=== PATIENT | female | born 1985 | race Caucasian/White ===

== ENCOUNTER 2023-06-30 07:22 | Outpatient (AMB) | payer BC, SELFPAY ==
[2023-06-30 07:38] VITALS: BP 130/62; BMI 35.3
--- NOTE | 2023-06-30 07:38 | MHC.PC.OV ---
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 Intake Note: New patient establishing care, possible ear infection Big Data Developer Required: No Accompanied by: Self / Same As Patient Allergies No Known Allergies Allergy (Verified 06/30/23 07:47) Medication List - Last Reconciled 06/30/23 by Sara Orr MD omeprazole 20 mg PO DAILY Tobacco use date assessed: 06/30/23 Dental Screening Dental Screen Date: 06/30/23 Did you have a dental visit in the last 12 months?: No Did you have a dental problem in the last 6 months where you did not have access to dental care?: No Was dental information given to patient?: Patient has dentist HPI HPI Comments History of Present Illness Details This is a 38-year-old female with rheumatoid arthritis, left hearing loss and chronic GERD that comes today to establish care. She complains of left ear pain with poor related fusion that has been present for few months. No fever. She sees ENT and has an appointment in September. Was diagnosed with rheumatoid arthritis and 20 years old and was evaluated by Dr. Mercedes who prescribed methotrexate and Enbrel but then did not had insurance for a while and stopped following with Rheumatology. Has been out of treatment for few years. Has been having GERD for about a year that is stable with omeprazole. Denies any chest pain or shortness of breath. No change in bowel or bladder habits. [facility], [facility] Surgical History History of ear surgery Family History Father Throat cancer Lung cancer Mother No problems noted. Social History (Updated 06/30/23 @ 07:54 by Sara Orr MD) Housing: House Alcohol intake: current Alcohol intake frequency: holidays/special occasions only Alcohol type: wine Patient Tobacco Use Status: Never used Tobacco e-Cigarette/Vaping Use: Never Used Second Hand Smoke Exposure: No service: No Current occupational status: employed Current occupational exposures/hazards: No Cognitive needs: No Hearing needs: Yes Vision needs: No Questionnaire PHQ-9 Over the last 2 weeks, how often have you been bothered by any of the following problems? 1. Little interest or pleasure in doing things: not at all 2. Feeling down, depressed, or hopeless: not at all 3. Trouble falling or staying asleep, or sleeping too much: not at all 4. Feeling tired or having little energy: not at all 5. Poor appetite or overeating: not at all 6. Feeling bad about yourself - or that you are a failure or have let yourself or your family down: not at all 7. Trouble concentrating on things, such as reading the newspaper or watching television: not at all 8. Moving or speaking so slowly that other people could have noticed. Or the opposite - being so fidgety or restless that you have been moving around a lot more than usual: not at all 9. Thoughts that you would be better off or of hurting yourself in some way: not at all Total score: 0 Depression Screening Interpretation: Negative Depression Screening Done: Yes 86767 - PHQ-9 Billing: Yes Source: Developed by Drs. Jack Snowden, Vickie Owens, Ramiro Mccarty and colleagues, with an educational alicia from [employer]. Thrive Questionnaire Date Thrive assessed: 06/30/23 I am a: Patient What is your living situation today?: I have a steady place to live Within the past 12 months, did the food you bought not last and you didn't have the money to get more?: Never true Within the past 12 months, did you worry whether your food would run out before you got money to buy more?: Never true Do you have trouble paying for medicines?: No Do you have trouble getting transportation to medical appointments?: No Do you have trouble paying your heating and electricity bill?: No Do you have trouble taking care of your child, family member or friend?: No Do you have trouble with day-to-day activities such as bathing, preparing meals, shopping, managing finances, etc.?: No Are you currently unemployed and looking for a job?: No Are you interested in more education?: No Please select the resources that you would like help with: None Currently or been in a relationship where the following occur: no concerns reported THRIVE Score: 0 AUDIT C Alcohol Use Questionnaire (AUDIT-C) 1. How often do you have a drink containing alcohol?: Monthly or less 2. How many drinks containing alcohol do you have on a typical day when you are drinking?: 1 or 2 3. How often do you have six or more drinks on one occasion?: Never Total Score: 1 Score Reviewed/Action Taken: No POONAM-7 AMB Questionnaire POONAM-7 Date POONAM - 7 assessed: 06/30/23 Feeling nervous, anxious, or on edge: 0 = Not at all Not being able to stop or control worryin = Not at all Worrying too much about different things: 0 = Not at all Trouble relaxin = Not at all Being so restless that it is hard to sit still: 0 = Not at all Becoming easily annoyed or irritable: 0 = Not at all Feeling afraid as if something awful might happen: 0 = Not at all Total POONAM-7 score (0-4 normal; 5-9 mild; 10-14 moderate; 15-21 severe): 0 Source: Developed by Drs. Jack Snowden, Vickie Owens, Ramiro Mccarty and colleagues, with an educational alicia from [employer]. POONAM-7 Assessment Billing POONAM-7 Assessment Tool: POONAM-7 Assessment 00777 Review of Systems Const All systems reviewed & are unremarkable except as noted in HPI and below Card Denies chest pain at rest, Denies chest pain with activity, Denies edema, Denies irregular heart rhythm, Denies claudication, Denies dyspnea, Denies dyspnea on exertion, Denies orthopnea, Denies paroxysmal nocturnal dyspnea and Denies slow heart rate Resp Denies cough, Denies dyspnea and Denies dyspnea on exertion GI Denies abdominal pain, Denies change in bowel habits, Denies excessive flatus, Denies nausea and Denies vomiting Denies urinary incontinence, Denies urinary hesitancy and Denies urinary urgency Physical exam (Primary Care) Vital Signs: Last Vital Signs BP 130/62 06/30/23 07:38 BMI result Body Mass Index 35.3 Tobacco/Smoking Status: Tobacco use Status Tobacco use date assessed 06/30/23 06/30/23 07:45 Patient Tobacco Use Status Never used Tobacco 06/30/23 07:54 e-Cigarette/Vaping Use Never Used 06/30/23 07:54 PHQ-9: PHQ-9 Score PHQ-9: Total score 0 06/30/23 07:56 Depression Screening Interpretation: Negative Thrive Assessment: Date of Thrive Assessment Date Thrive assessed 06/30/23 06/30/23 07:45 Currently or been in a relationship where the following occur: no concerns reported Resp Effort & Inspection: normal respiratory effort Auscultation: clear to auscultation bilaterally Cardio Jugular venous distension: no JVD Rate: regular rate Rhythm: regular rhythm Heart sounds: S1 normal heart sound present and S2 normal heart sound present Extrem General: Yes full ROM Psych Appearance: grossly normal Assessment and Plan Assessment & Plan (1) Rheumatoid arthritis: Code(s): M06.9 - Rheumatoid arthritis, unspecified Plan: Referred to rheumatology. Labs ordered to see if it is active. (2) Chronic GERD: Code(s): K21.9 - Gastro-esophageal reflux disease without esophagitis Plan: Continue omeprazole. (3) Hearing loss in left ear: Code(s): H91.92 - Unspecified hearing loss, left ear Plan: Referred to a hearing test. (4) Left otitis media with effusion: Code(s): H65.92 - Unspecified nonsuppurative otitis media, left ear Plan: Start Augmentin. Orders: Orders Thyroid Stimulating Hormone Today E66.9 - Obesity, unspecified Comprehensive Martin. Panel Fast Today E66.9 - Obesity, unspecified Complete Blood Count Auto Diff Today M06.9 - Rheumatoid arthritis, unspecified Rheumatoid Factor Today M06.9 - Rheumatoid arthritis, unspecified SARA Reflex Titer and Pattern Today M06.9 - Rheumatoid arthritis, unspecified Complement C3 Today M06.9 - Rheumatoid arthritis, unspecified Complement C4 Today M06.9 - Rheumatoid arthritis, unspecified Lipid Panel Today E66.9 - Obesity, unspecified Cyclic Citrullinated Peptide Today M06.9 - Rheumatoid arthritis, unspecified Erythrocyte Sedimentation Rate Today M06.9 - Rheumatoid arthritis, unspecified CRP High Sensitivity Today M06.9 - Rheumatoid arthritis, unspecified Anti DNA DS Antibody Today M06.9 - Rheumatoid arthritis, unspecified Referrals [facility] Referral Z12.4 - Encounter for screening for malignant neoplasm of cervix Speech and Hearing Referral H91.92 - Unspecified hearing loss, left ear Rheumatology Referral M06.9 - Rheumatoid arthritis, unspecified Medications: New amoxicillin-pot clavulanate 875-125 mg 1 tab PO BID 14 tabs 0RF 7 days H65.92 - Unspecified nonsuppurative otitis media, left ear Coding Level of Care Code New Pt Level 4 (71241) Diagnoses Rheumatoid arthritis M06.9 Chronic GERD K21.9 Hearing loss in left ear H91.92 Left otitis media with effusion H65.92 Additional Codes POONAM-7 Assessment Billing - POONAM-7 Assessment Tool: POONAM-7 Assessment 50121 ([id number]) Time Spent (min) 23
== END 2023-06-30 07:59 | disposition home or self-care (01) ==
PROVIDERS: PCP Internal Medicine; Visit Provider Internal Medicine
DX: M06.9 Rheumatoid arthritis, unspecified (principal); K21.9 Gastro-esophageal reflux disease without esophagitis; H91.92 Unspecified hearing loss, left ear; H65.92 Unspecified nonsuppurative otitis media, left ear
CPT/HCPCS: 99204

== ENCOUNTER 2023-07-15 10:24 | Outpatient (AMB) | payer BC, SELFPAY ==
[2023-07-15 10:32] VITALS: BP 118/72; BMI 35.3
--- NOTE | 2023-07-15 10:32 | A.OFFVIS_ITS ---
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 Lewis in [place]. 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 She gets regular periods she is due to get her period any day now. She has no other customer service administrator concerns she has a history of herpes many years ago last outbreak was 2 years ago she would like a refills of Valtrex for p.r.n. use. She is to of the teen years they are not sexually active in the last time was at least 2 years ago she has no concerns about STDs but when testing was offered for the vaginal tests along with Pap smear she accepted. She recently saw primary care for the 1st time and will be going for the blood work. [facility] Surgical History History of ear surgery Family History Father Throat cancer Lung cancer Mother No problems noted. Social History Housing: House Alcohol intake: current Alcohol intake frequency: holidays/special occasions only Alcohol type: wine Patient Tobacco Use Status: Never used Tobacco e-Cigarette/Vaping Use: Never Used Second Hand Smoke Exposure: No service: No Current occupational status: employed Current occupational exposures/hazards: No Cognitive needs: No Hearing needs: Yes Vision needs: No Female Reproductive History Menstrual Age of Menarche: 15 Duration of menses: 3-5 days Date of last menstrual period: 06/15/23 control method: none Total pregnancies: 0 History of abnormal pap smear: No (previous pap,unknown) Physical Exam Vital Signs: Last Vital Signs BP 118/72 07/15/23 10:32 BMI result Body Mass Index 35.3 Assessment & Plan Assessment & Plan (1) Screening for cervical cancer: Code(s): Z12.4 - Encounter for screening for malignant neoplasm of cervix Category: Medical (2) Obesity (BMI 35.0-39.9 without comorbidity): Code(s): E66.9 - Obesity, unspecified Category: Medical (3) Well woman exam with routine gynecological exam: Code(s): Z01.419 - Encounter for gynecological examination (general) (routine) without abnormal findings Category: Medical (4) Hx of herpes genitalis: Comment: No outbreaks for last 2 years -refill of Valtrex sent for p.r.n. use for episodic Rx Code(s): Z86.19 - Personal history of other infectious and parasitic diseases Category: Medical (5) Dry skin: Code(s): L85.3 - Xerosis cutis Category: Medical Plan -----Discussed in this visit the following: healthy balanced diet, regular and consistent exercise, getting recommended health screens, doing the best she can for her particular health concerns, kegel exercises, pap smear screening and followup recommendations, mammography screening and SBE, normal changes in cycles in her life stage--- . Discussed and offered Valtrex Rx for episodic therapy she does not get frequent breaks but she accepted the prescription for p.r.n. use. She has not worried about STDs she has not sexually active with her but excepted testing along with the Pap smear but declined blood work testing She will be going for the blood tests ordered by her primary care provider soon Discussed dry skin care. Orders: Orders Pap Smear Today Z01.419 - Encounter for gynecological examination (general) (routine) without abnormal findings CT NG by PCR Today Z01.419 - Encounter for gynecological examination (general) (routine) without abnormal findings Bacterial Vaginosis Panel Today Z20.2 - Contact with and (suspected) exposure to infections with a predominantly sexual mode of transmission Coding Level of Care Code New Pt Prev Care 18-39yr([id number] Diagnoses Screening for cervical cancer Z12.4 Obesity (BMI 35.0-39.9 without comorbidity) E66.9 Well woman exam with routine gynecological exam Z01.419 Hx of herpes genitalis Z86.19 Dry skin L85.3
== END 2023-07-15 11:25 | disposition home or self-care (01) ==
LOC: HO.HWSM 10:24
PROVIDERS: PCP Internal Medicine; Visit Provider Advanced Practice Midwife
DX: Z01.419 Encounter for gynecological examination (general) (routine) without abnormal findings (principal); E66.9 Obesity, unspecified; Z86.19 Personal history of other infectious and parasitic diseases
CPT/HCPCS: 99385

== ENCOUNTER 2023-07-15 10:24 | Outpatient (REF) | payer BC, SELFPAY ==
[2023-07-16 09:35] LABS: Bacterial Vaginosis PCR NEGATIVE (Negative); Candida Group PCR NOT DETECTED (Not Detect); Candida glab krusei PCR NOT DETECTED (Not Detect); Trichomonas vaginalis PCR NOT DETECTED (Not Detect)
[2023-07-16 09:45] LABS: CT PCR NOT DETECTED (Not Detect.); NG PCR NOT DETECTED (Not Detect.)
[2023-07-23 01:03] LABS: HPV mRNA E6/E7 rflx Not Detected (Not Detected)
== END 2023-07-15 10:25 | disposition home or self-care (01) ==
LOC: HO.LAB 10:24
PROVIDERS: PCP Internal Medicine; Visit Provider Advanced Practice Midwife
DX: Z01.419 Encounter for gynecological examination (general) (routine) without abnormal findings (principal); Z11.51 Encounter for screening for human papillomavirus (HPV); Z20.2 Contact with and (suspected) exposure to infections with a predominantly sexual mode of transmission; E66.9 Obesity, unspecified; L85.3 Xerosis cutis
CPT/HCPCS: 0352U; 0353U; 87624; 88142

== ENCOUNTER 2023-09-16 14:57 | Outpatient (AMB) | payer BC, SELFPAY ==
--- NOTE | 2023-09-16 15:02 | A.OFFVIS_ITS ---
Vital Signs 09/16/23 15:04 Height 5 ft Weight 180 lb 1.883 oz BMI 35.2 BP 132/64 Blood Pressure Location Lt brachial Position Sitting Respiration 16 Pulse 99 Pulse Source Pulse Oximeter Pulse Oximetry (%) 99 Oxygen Delivery Method Room Air Intake Visit Reasons: RA/cm Intake Note: Patient presents for RA. Allergies No Known Allergies Allergy (Verified 09/16/23 15:05) Medication List - Last Reconciled 09/16/23 by Alistair Malin MD omeprazole 20 mg PO DAILY valacyclovir 1,000 mg PO DAILY HPI Comments Details: This is a 38-year-old female presents for evaluation of rheumatoid arthritis. She stated that she was diagnosed with rheumatoid arthritis when she was 19. She used to follow-up with Dr. Mercedes. She stated that she was started on metho trexate, she took it for a few months, it was not effective, Enbrel was added and it was dramatically helpful. Then methotrexate was discontinued. She was on Enbrel about a year and she had to stop it as her insurance no longer covered it. Had not seen a private secretary since age 20. She is complaining of diffuse joint pain especially her hands, her knees and her back. Morning stiffness of her hands lasts about an hour. She gets intermittent swelling of her wrists and fingers. She takes ibuprofen around 1200 mg a day and takes 6 Tylenol a day as well. She denies any significant skin rashes, denies any fevers or weight loss. Denies any history of DVT/PE. She has a cousin with lupus and rheumatoid arthritis. She is unaware of any immediate family member with an autoimmune rheumatic disease. She denies history of psoriasis. Denies history suggestive of uveitis or inflammatory bowel disease. She has hearing loss. 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 She gets herpes labialis about once a year at the most treated with valacyclovir as needed [facility] Medical History Hearing loss in left ear Surgical History History of ear surgery Family History Father Throat cancer Lung cancer Mother No problems noted. 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 Current occupational exposures/hazards: No Cognitive needs: No Hearing needs: Yes Vision needs: No Female Reproductive History Menstrual Age of Menarche: 15 Total pregnancies: 0 Review of Systems Const Denies fever(s) and Denies weight loss Musc Reports back pain, Reports arthralgias, Reports joint swelling, Reports limited range of motion and Reports stiffness Skin/Breast Denies rash Physical Exam Vital Signs: Last Vital Signs Pulse 99 09/16/23 15:04 Resp 16 09/16/23 15:04 BP 132/64 09/16/23 15:04 Pulse Ox 99 09/16/23 15:04 Oxygen Delivery Method Room Air 09/16/23 15:04 BMI result Body Mass Index 35.2 Const General: cooperative, healthy appearing and comfortable Nutritional Appearance: obese Orientation/consciousness: patient oriented x3 Limitations: no limitations HEENT Head: Yes normocephalic and Yes atraumatic Mouth: moist mucous membranes Resp Effort & Inspection: normal respiratory effort and able to speak in complete sentences Auscultation: clear to auscultation bilaterally Cardio Rate: regular rate Rhythm: regular rhythm Skin Other: Dry skin on extensor surface of both elbows Neuro General: patient oriented x3 Extrem Other: Puffiness of MCPs bilaterally Left 3rd and 5th MCP tenderness Left 3rd flexor tendon tenderness Positive MCP squeeze test on the left No wrist swelling or tenderness Few PIP tenderness with no DIP tenderness left hand Positive MCP squeeze test right hand Normal nailfold capillaroscopy No elbow pain with full flexion-extension Firm nodule on both elbows, could be a rheumatoid nodule Normal range of motion of shoulders bilaterally Negative straight leg raise test bilaterally Right trochanteric bursa area tenderness with negative Marleni's test Bilateral knee pain with full flexion Right ankle mild swelling and tenderness Multiple tender MTPs right foot and positive MTP squeeze test Right foot bunion Assessment & Plan Assessment & Plan (1) Rheumatoid arthritis: Comment: dx age 19 , unknown serologies MTX started ineffective Enbrel added, then MTX DC Enbrel stopped due to loss of insurance at 20, no DMARDs since Code(s): M06.9 - Rheumatoid arthritis, unspecified Category: Medical Plan: This is a 38-year-old female who presents for evaluation of rheumatoid arthritis. Patient was diagnosed at age 19 and was on methotrexate followed by Enbrel. She has not been on DMARDs since about age 20. She is complaining of diffuse joint pain. Check labs to evaluate disease activity, check x-rays of involved joints to evaluate for any erosive disease. Follow-up in about 4 weeks Plan I spent 46 minutes reviewing patient's chart, evaluating patient, ordering diagnostic workup, counseling patient and documenting in the chart Orders: Orders MILADYS Reflex Titer and Pattern Today M32.9 - Systemic lupus erythematosus, unspecified Anti Extractable Nuclear Ag Today M32.9 - Systemic lupus erythematosus, unspecified Complement C3 Today M32.9 - Systemic lupus erythematosus, unspecified Complement C4 Today M32.9 - Systemic lupus erythematosus, unspecified DNA Double Stranded-Crithidia Today M32.9 - Systemic lupus erythematosus, unspecified Erythrocyte Sedimentation Rate Today M32.9 - Systemic lupus erythematosus, unspecified Protein Creatinine Ratio, Ur Today M32.9 - Systemic lupus erythematosus, unspecified Complete Blood Count Auto Diff Today M32.9 - Systemic lupus erythematosus, unspecified Protein Electrophoresis, Serum Today M32.9 - Systemic lupus erythematosus, unspecified XR hand wrist LT Today M06.9 - Rheumatoid arthritis, unspecified XR hand wrist RT Today M06.9 - Rheumatoid arthritis, unspecified XR hip LT min 2V Today M06.9 - Rheumatoid arthritis, unspecified XR knee LT 3V Today M06.9 - Rheumatoid arthritis, unspecified XR lumbar spine 4V min Today M06.9 - Rheumatoid arthritis, unspecified XR sacroiliac joint min 3V Today M06.9 - Rheumatoid arthritis, unspecified Anti DNA DS Antibody Today M32.9 - Systemic lupus erythematosus, unspecified C Reactive Protein Today M32.9 - Systemic lupus erythematosus, unspecified Sjogren's Antibodies Today M32.9 - Systemic lupus erythematosus, unspecified UA w Microscopic Today M32.9 - Systemic lupus erythematosus, unspecified Comprehensive Met. Panel Today M32.9 - Systemic lupus erythematosus, unspecified Hepatitis A,B,C Profile Today Z11.59 - Encounter for screening for other viral diseases Immunofixation Pnl, Serum Today M32.9 - Systemic lupus erythematosus, unspecified T Spot TB Today Z11.7 - Encounter for testing for latent tuberculosis infection Rheumatoid Factor Today M32.9 - Systemic lupus erythematosus, unspecified Cyclic Citrullinated Peptide Today M32.9 - Systemic lupus erythematosus, unspecified HLA B27 Today M45.9 - Ankylosing spondylitis of unspecified sites in spine XR ankle LT min 3V Today M06.9 - Rheumatoid arthritis, unspecified XR ankle RT min 3V Today M06.9 - Rheumatoid arthritis, unspecified XR hip RT min 2V Today M06.9 - Rheumatoid arthritis, unspecified XR knee RT 3V Today M06.9 - Rheumatoid arthritis, unspecified XR knee standing BI Today M06.9 - Rheumatoid arthritis, unspecified Angiotensin Converting Enzyme Today D86.9 - Sarcoidosis, unspecified Coding Level of Care Code New Pt Level 4 (38127) Diagnoses Rheumatoid arthritis M06.9
[2023-09-16 15:04] VITALS: BP 132/64; PULSE 99; RESP 16; O2SAT 99; BMI 35.2
== END 2023-09-16 15:33 | disposition home or self-care (01) ==
PROVIDERS: PCP Internal Medicine; Visit Provider Student in an Organized Health Care Education/Training Program
DX: M06.9 Rheumatoid arthritis, unspecified (principal)
CPT/HCPCS: 99204

== ENCOUNTER 2023-10-04 11:40 | Outpatient (REF) | payer BC, SELFPAY ==
--- NOTE | ~2023-10-04 | XR_ITS ---
EXAMINATION: XR KNEE, LEFT CLINICAL INFORMATION: Rheumatoid arthritis. COMPARISON: None available. TECHNIQUE: AP tunnel, lateral and sunrise views of the left knee. FINDINGS: No fracture or joint effusion. Alignment is anatomic. Joint spaces are maintained. No abnormal soft tissue calcification. XR/XR knee LT 4V IMPRESSION: Normal left knee. Electronically signed by: Yasmani Byrne MD 10/25/2023 04:12 PM EDT
--- NOTE | ~2023-10-04 | XR_ITS ---
Study: Lumbar spine INDICATION: Rheumatoid arthritis COMPARISON: None TECHNIQUE: 5 view FINDINGS: 5 lumbar type vertebral bodies are identified and are maintained in height. No spondylolysis or listhesis. Pedicles and SI joints within normal limits. Hip joints are maintained. XR/XR lumbar spine 4V min IMPRESSION: Unremarkable examination. . Electronically signed by: Sakshi Edmond MD 11/02/2023 09:26 AM EDT
--- NOTE | ~2023-10-04 | XR_ITS ---
EXAMINATION: XR SACROILIAC JOINTS CLINICAL INFORMATION: Rheumatoid arthritis. COMPARISON: None available. TECHNIQUE: 3 views of the sacroiliac joints FINDINGS: Bones and soft tissues are normal. No fracture. Alignment is anatomic. Sacroiliac joint spaces are well-maintained without erosions or surrounding sclerosis. XR/XR sacroiliac joint min 3V IMPRESSION: Normal sacroiliac joints. Electronically signed by: Saturnino Reis MD 11/01/2023 12:56 PM EDT
--- NOTE | ~2023-10-04 | XR_ITS ---
EXAMINATION: XR ANKLE, RIGHT CLINICAL INFORMATION: Rheumatoid arthritis COMPARISON: None available. TECHNIQUE: AP, lateral, and mortise views of the right ankle. FINDINGS: No fracture. Alignment is anatomic. No erosions. Joint spaces are maintained. Soft tissues are normal. Small calcaneal spurs. XR/XR ankle RT min 3V IMPRESSION: Small calcaneal spurs. Electronically signed by: Saturnino Reis MD 11/01/2023 12:58 PM EDT RP
--- NOTE | ~2023-10-04 | XR_ITS ---
EXAMINATION: XR HIP, LEFT CLINICAL INFORMATION: Rheumatoid arthritis. COMPARISON: None available. TECHNIQUE: AP and frog-leg lateral views of the left hip. FINDINGS: No fracture. Alignment is anatomic. Hip joint space is maintained. Soft tissues are unremarkable. XR/XR hip LT min 2V IMPRESSION: Normal left hip. Electronically signed by: Yasmani Byrne MD 10/25/2023 05:07 PM EDT
--- NOTE | ~2023-10-04 | XR_ITS ---
EXAMINATION: XR HAND/WRIST, RIGHT XR HAND/WRIST, LEFT CLINICAL INFORMATION: Rheumatoid arthritis. COMPARISON: None available. TECHNIQUE: PA, lateral, and oblique views of the each hand and wrist. FINDINGS: RIGHT HAND/WRIST: There are no marginal erosions. Question mild/subtle joint space narrowing of the radiocarpal compartment. Carpal cyst in the scaphoid, nonspecific. Remaining bones, joints and soft tissues are unremarkable. LEFT HAND/WRIST: No marginal erosions. Bones , joints and soft tissues are normal. XR/XR hand wrist LT IMPRESSION: RIGHT HAND: Question mild/subtle joint space narrowing of the radiocarpal compartment. No marginal erosions. LEFT HAND: No evidence of inflammatory arthropathy. Electronically signed by: Saturnino Reis MD 10/24/2023 08:04 PM EDT
--- NOTE | ~2023-10-04 | XR_ITS ---
EXAMINATION: XR HIP, RIGHT CLINICAL INFORMATION: Rheumatoid arthritis COMPARISON: None available. TECHNIQUE: Two views of the right hip. FINDINGS: No fracture. Alignment is anatomic. Hip joint space is maintained. Soft tissues are unremarkable. XR/XR hip RT min 2V IMPRESSION: Unremarkable right hip Electronically signed by: Sakshi Edmond MD 11/02/2023 09:27 AM EDT
--- NOTE | ~2023-10-04 | XR_ITS ---
EXAMINATION: XR HAND/WRIST, RIGHT XR HAND/WRIST, LEFT CLINICAL INFORMATION: Rheumatoid arthritis. COMPARISON: None available. TECHNIQUE: PA, lateral, and oblique views of the each hand and wrist. FINDINGS: RIGHT HAND/WRIST: There are no marginal erosions. Question mild/subtle joint space narrowing of the radiocarpal compartment. Carpal cyst in the scaphoid, nonspecific. Remaining bones, joints and soft tissues are unremarkable. LEFT HAND/WRIST: No marginal erosions. Bones , joints and soft tissues are normal. XR/XR hand wrist RT IMPRESSION: RIGHT HAND: Question mild/subtle joint space narrowing of the radiocarpal compartment. No marginal erosions. LEFT HAND: No evidence of inflammatory arthropathy. Electronically signed by: Saturnino Reis MD 10/24/2023 08:04 PM EDT
--- NOTE | ~2023-10-04 | XR_ITS ---
EXAMINATION: XR ANKLE, LEFT CLINICAL INFORMATION: Rheumatoid arthritis COMPARISON: None available. TECHNIQUE: AP, lateral, and mortise views of the left ankle. FINDINGS: A small calcaneal spurs. No fracture. Alignment is anatomic. No erosions. Joint spaces are maintained. Soft tissues are normal. XR/XR ankle LT min 3V IMPRESSION: Small calcaneal spurs. Electronically signed by: Saturnino Reis MD 11/01/2023 12:57 PM EDT RP
--- NOTE | ~2023-10-04 | XR_ITS ---
EXAMINATION: XR KNEE, RIGHT XR KNEE AP STANDING CLINICAL INFORMATION: Rheumatoid arthritis. COMPARISON: None TECHNIQUE: AP, lateral and axial views of the right knee. AP bilateral standing view of the knees was obtained. FINDINGS: Bones and soft tissues are normal. No fracture or joint effusion. Alignment is anatomic. Joint spaces are well maintained. No abnormal soft tissue calcification. XR/XR knee RT 4V IMPRESSION: Normal knee. Electronically signed by: Yasmani Byrne MD 10/25/2023 03:38 PM EDT
[2023-10-04 12:28] LABS: MANUAL DIFF FLAG NO
[2023-10-04 12:53] LABS: Basophils Percent Auto 0.4 % (0-2); Eosinophils Absolute Auto 0.1 X10*3/uL (0.0-0.4); Eosinophils Percent Auto 2.1 % (0-4); Hematocrit 26.1 % (37.0-47.0); Imm Gran Abs Auto 0.02 X10*3/uL (0.00-0.03); Imm Gran Pct Auto 0.4 % (0.0-0.4); Lymphocytes Absolute Auto 1.9 X10*3/uL (1.2-4.9); Lymphocytes Percent Auto 33.3 % (20-40); Mean Corpuscular HGB Conc 26.1 g/dl (31.0-35.0); Mean Corpuscular Hemoglobin 16.2 pg (27.0-33.0); Mean Platelet Volume 9.7 fL (9.4-12.3); Monocytes Absolute Auto 0.4 X10*3/uL (0.1-1.2); Monocytes Percent Auto 6.5 % (2-11); Neutrophils Absolute Auto 3.3 x10*3/uL (2.0-8.3); Neutrophils Percent Auto 57.3 % (45-73); Platelet Count 310 X10*3/uL (160-400); Red Blood Count 4.21 X10*6/uL (4.20-5.50); Red Cell Distribution Width 19.4 % (11.0-16.0); White Blood Count 5.7 X10*3/uL (4.8-10.8)
[2023-10-04 12:56] LABS: Appearance Urine Clear; Color Urine Yellow; Glucose Urine UA Negative (Negative); Leukocyte Esterase Urine Negative (Negative); Nitrite Urine Negative (Negative); Urine Blood Negative (Negative); Urine Ketones Negative (Negative); Urine Protein Negative (Neg-Trace)
[2023-10-04 13:00] LABS: Bacteria Urine None Seen (None Seen); Hyaline Casts Urine 0-2 /LPF (0-2); RBC Urine 0-2 /HPF (0-2); Squamous Epithelial Cell Urine 0-2 /HPF (0-2); WBC Urine 0-5 /HPF (0-5)
[2023-10-04 13:10] LABS: Hemoglobin 6.8 g/dl (12.0-16.0)
[2023-10-04 13:34] LABS: Erythrocyte Sedimentation Rate 28 MM/HR (0-20)
[2023-10-04 13:36] LABS: Protein/Creatinine Ratio, Ur 0.04 (<0.2); Total Protein Urine Random 9 mg/dL (<12)
[2023-10-04 13:40] LABS: Rheumatoid Factor 32.4 IU/mL (<15.0)
[2023-10-04 13:57] LABS: Alanine Aminotransferase 27 U/L (0-31); Albumin Level 4.2 g/dL (3.5-5.0); Alkaline Phosphatase 74 U/L (39-117); Anion Gap 11 (12-20); Aspartate Amino Transferase 21 U/L (5-31); Bilirubin Total 0.5 mg/dL (0.0-1.0); Blood Urea Nitrogen 11 mg/dL (9-16); C Reactive Protein 0.84 mg/dL (< or = 0.50); Calcium 8.9 mg/dL (8.4-10.2); Carbon Dioxide 27 mmol/L (22-29); Chloride 105 mmol/L (96-108); Estimated Glomerular Filt Rate > 60; Glucose Random 101 mg/dL (60-115); Potassium 3.8 mmol/L (3.3-5.1); Sodium 139 mmol/L (135-145); Total Protein 7.8 g/dL (6.5-8.0)
[2023-10-04 14:13] LABS: Thyroid Stimulating Hormone 1.83 uIU/mL (0.32-4.0)
[2023-10-05 08:25] LABS: HBS Num1 24.13 mIU/mL (0-7.99); Hepatitis A Antibody IgM 0.18 Index (0-0.79); Hepatitis B Core Antibody Nonreactive (Nonreactive); Hepatitis B Surface Antigen Negative (Negative); ~Hepatitis A Antibody IgM Nonreactive (Nonreactive); ~Hepatitis B Surface Antibody REACTIVE (Nonreactive); ~Hepatitis C Antibody Reactive (Nonreactive)
[2023-10-05 08:38] LABS: CRP High Sensitivity 7.1 mg/L; Complement C3 142 mg/dL (83-193)
[2023-10-06 14:23] LABS: Anti DNA DS Antibody <1 IU/mL; Antibody to SS-A Antigen <1.0 NEG AI (<1.0 NEG); Antibody to SS-B Antigen <1.0 NEG AI (<1.0 NEG); SM/Ribonucleoprotein Ab <1.0 NEG AI (<1.0 NEG); Smith Protein <1.0 NEG AI (<1.0 NEG)
[2023-10-07 00:09] LABS: IgA 250 mg/dL (47-310); IgG 1415 mg/dL (600-1640); IgM 301 mg/dL (50-300)
[2023-10-07 00:12] LABS: TS Negative Control Passed; TS Panel A 0; TS Panel B 0; TS Positive Control Passed; TSpotTB Negative (Negative)
[2023-10-07 09:17] LABS: Prot Elec - Albumin 3.9 g/dL (3.8-4.8); Prot Elec - Alpha1 0.3 g/dL (0.2-0.3); Prot Elec - Alpha2 0.8 g/dL (0.5-0.9); Prot Elec - Beta 1 0.6 g/dL (0.4-0.6); Prot Elec - Beta 2 0.3 g/dL (0.2-0.5); Prot Elec - Gamma 1.4 g/dL (0.8-1.7); Prot Elec - Total Protein 7.3 g/dL (6.1-8.1)
[2023-10-07 09:39] LABS: Cyclic Citrullinated Peptide >250 UNITS
[2023-10-07 11:04] LABS: Anti Nuclear Antibody Screen NEGATIVE (NEGATIVE)
[2023-10-10 01:33] LABS: HLA B27 Negative (Negative)
[2023-10-10 22:09] LABS: Angiotensin Converting Enzyme 22 U/L (9-67)
[2023-10-15 15:43] LABS: DNAds, Crithidia Antibody Negative (Negative)
== END 2023-10-04 11:41 | disposition home or self-care (01) ==
LOC: HO.XRAY 11:40
PROVIDERS: Absent Provider Internal Medicine; PCP Internal Medicine; Visit Provider Student in an Organized Health Care Education/Training Program
DX: Z11.59 Encounter for screening for other viral diseases (principal); Z11.7 Encounter for testing for latent tuberculosis infection; M06.9 Rheumatoid arthritis, unspecified; E66.9 Obesity, unspecified; M32.9 Systemic lupus erythematosus, unspecified; M45.9 Ankylosing spondylitis of unspecified sites in spine; D86.9 Sarcoidosis, unspecified; Z72.89 Other problems related to lifestyle
CPT/HCPCS: 36415; 72110; 72202; 73110; 73130; 73502; 73564; 73610; 80053; 81001; 82164; 82570; 82784; 84156; 84165; 84443; 85025; 85652; 86038; 86140; 86141; 86160; 86200; 86225; 86235; 86255; 86334; 86431; 86481; 86704; 86706; 86709; 86803; 86812; 87340

== ENCOUNTER 2023-10-04 13:41 | Emergency (ER) | payer BC, SELFPAY ==
[2023-10-04] VITALS (14 sets, daily range): BP systolic 119–142; BP diastolic 59–79; PULSE 73–103; RESP 11–18; TEMP 36.7–37; O2SAT 98–100; BMI 35.4
--- NOTE | ~2023-10-04 | CT_ITS ---
EXAMINATION: CT ABDOMEN AND PELVIS WITH AND WITHOUT CONTRAST: CT GI BLEEDING STUDY CLINICAL INFORMATION: Reason for Exam lower gi bleed. COMPARISON: No pertinent prior studies are available for comparison. TECHNIQUE: Multidetector volumetric imaging was performed from the lung bases to the pubic symphysis before and after the administration of: Intravenous contrast: 80 mL Omnipaque 350 2 sets of post contrast scans were obtained, one during the arterial phase and another after a 2 minute delay to look for extravasation of contrast and bowel lumen. No contrast reaction reported MIP coronal, sagittal and coronal reformatted images were obtained on the technologist workstation. This CT examination was performed using dose optimization techniques as appropriate, variously including the following: *Automated exposure control *Adjustment of mA and/or kV according to patient size (this includes techniques or standardized protocols for targeted exams where dose is matched to indication/reason for exam; i.e. extremities or head) *Use of iterative reconstruction technique Total exam dose-length product 1597 mGy-cm FINDINGS: STOMACH: No abnormal wall thickening or mass. No intraluminal contrast accumulation to suggest hemorrhage. SMALL BOWEL: No abnormal wall thickening or dilation. No intraluminal contrast accumulation to suggest hemorrhage. COLON: No intraluminal contrast accumulation to suggest hemorrhage. No colonic wall thickening or pericolonic inflammatory changes. Diverticulosis without evidence of diverticulitis. Normal appendix. LUNG BASES: No nodules, mass, or focal consolidation. PLEURA: No pleural effusion. LIVER, GALLBLADDER, AND BILIARY TREE: The liver is mildly enlarged at 17.7 cm in greatest dimension. In size, shape, and attenuation. No focal hepatic lesion or biliary ductal dilatation is present. The gallbladder is unremarkable with no evidence of radiopaque gallstones, gallbladder wall thickening, or obvious pericholecystic inflammatory changes. PANCREAS: Normal; no mass or surrounding fluid. SPLEEN: Spleen is enlarged with maximum dimension of 15 cm. No focal lesion. ADRENAL GLANDS: Normal; no mass. KIDNEYS AND URETERS: The kidneys are normal in size, shape, and attenuation. No hydronephrosis, hydroureter, or calculi. ABDOMINAL WALL: No hernia seen. LYMPHOVASCULAR STRUCTURES: No lymphadenopathy. The aorta is normal in caliber. A right femoral venous line is present with its tip at the iliac confluence. BLADDER: No focal mass or wall thickening seen. No bladder calculi. PELVIC VISCERA: Unremarkable. OSSEOUS STRUCTURES: No acute or suspicious osseous abnormality. CT/CT gi bleed abd pel wo/w IVcon IMPRESSION: 1. No evidence of active GI bleeding. 2. Incidental note made of mild hepatosplenomegaly and diverticulosis without diverticulitis.
--- NOTE | ~2023-10-04 | CT_ITS ---
EXAMINATION: CT HEAD WITHOUT CONTRAST CLINICAL INFORMATION: Headaches. COMPARISON: None. TECHNIQUE: Contiguous axial imaging was performed from the skull base to vertex without intravenous administration of contrast. Coronal and sagittal reformatted images are performed at the CT scanner. [This CT examination was performed using dose optimization techniques as appropriate, variously including the following: *Automated exposure control *Adjustment of mA and/or kV according to patient size (this includes techniques or standardized protocols for targeted exams where dose is matched to indication/reason for exam; i.e. extremities or head) *Use of iterative reconstruction technique] DLP: 556 mGy-cm. FINDINGS: There is no evidence of acute intracranial hemorrhage or territorial infarction. No abnormal mass-effect or midline shift is seen. Malagon to white matter differentiation is well preserved. No extra-axial fluid collections are identified. The ventricles are normal in size. There is no abnormal attenuation within the brain parenchyma. There is no osseous abnormality. The mastoid air cells and visualized portions of the paranasal sinuses are well-aerated. CT/CT head/brain wo IV con IMPRESSION: No acute intracranial pathology.
--- NOTE | 2023-10-04 13:46 | ECG_ITS ---
Test Reason : chest pain Blood Pressure : / mmHG Vent. Rate : 094 BPM Atrial Rate : 094 BPM P-R Int : 152 ms QRS Dur : 076 ms QT Int : 356 ms P-R-T Axes : 026 043 024 degrees QTc Int : 445 ms Normal sinus rhythm Normal ECG No previous ECGs available Referred By: Kel Thibodeaux Electronically Signed By:SERGIO CHATMAN MD
--- NOTE | 2023-10-04 14:40 | ED_ITS ---
HPI - Recheck/Abnormal Lab/Rx General Chief Complaint: Recheck/Abnormal Lab/Rx Stated Complaint: hemoglobin low Time Seen by Provider: 10/04/23 14:01 Source: patient Mode of arrival: ambulatory Limitations: no limitations History of Present Illness ED Provider: Isaiah LAO HPI narrative: 38 yo F with pmh of herpes genitalis, former IVDA, congenital deafness, GERD, obesity presenting due to low hemoglobin level (6.8) as reported by her pcp via phone call results this morning. Pt was at her rheumatology appointment this morning when she recieved a phone call from her PCP stating she needed to go to the ED d/t low hbg level. She reports associated headaches for the past 3 months and exertional chest pressure and FELICIANO. Pt denies any changes in stool or urine, denies hematuria, hematochezia, melena, vomiting, trauma, fevers, chills Related Data Home Medications ?Medication ?Instructions ?Recorded ?Confirmed omeprazole 20 mg capsule,delayed 20 mg PO DAILY 06/30/23 07/15/23 release Previous Rx's ?Medication ?Instructions ?Recorded valacyclovir 1 gram tablet 1,000 mg PO DAILY #30 tabs 07/15/23 Allergies Allergy/AdvReac Type Severity Reaction Status Date / Time No Known Allergies Allergy Verified 10/04/23 13:48 Review of Systems Review of Systems: Yes all other systems are reviewed and are negative PMFSH Past Medical History Attestation statement: The following information was validated with the patient. Source: old records reviewed and nursing notes reviewed Medical History Hearing loss in left ear Surgical History History of ear surgery Family History Family History Father Throat cancer Lung cancer Mother No problems noted. 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 Oriented X3.? No acute distress.? Head: Normocephalic, atraumatic, no step-offs or deformities Eyes: Pupils equal, round and reactive to light.? ENT: Pharynx normal.??External ears normal, TMs normal bilaterally and EAC's normal. No pain with manipulation of external ears bilaterally. No mastoid tenderness. Neck: Normal inspection.? Neck supple.? CVS: Normal heart rate and rhythm.? Pulses normal.? Respiratory: No respiratory distress.? Breath sounds normal.? Abdomen: Soft and nontender.? Skin: Skin warm and dry.? Normal skin color.? Normal skin turgor.? Extremities: No lower extremity edema.? No calf ttp. 5/5 strength to bilateral upper and lower extremities Back: No midline tenderness, no C-spine tenderness, full range of motion, no CVA tenderness bilaterally Neuro: Oriented X 3.? No motor deficit.? No sensory deficit. CN 2-12 intact Course Reevaluation(s) Reevaluation #1: CBC with a microcytic anemia likely secondary to acute blood loss from microscopic blood in stool. Chemistry unremarkable. TSH normal. UA without infection. OBS positive. Patient difficult stick. Tried with ultrasound unsuccessful. Dr. Mae also tried unsuccessful. Time: 15:22 Reevaluation #2: 2 units PRBC ordered. Time: 15:22 Reevaluation #3: Central line to be done by Dr. Hargrove she is a very difficult stick. Sign out to [facility] Time: 16:29 Medical Decision Making Medical Decision Making MDM Narrative: 38 yo F presenting due to low hemoglobin level (6.8) as reported by her pcp via phone call results this morning . Intermittent shortness of breath, fatigue, malaise, mild Physical examination aaox3, NAD, pt denies any recent bleeding/known bleeding disorder. Hx and pe concerning for HANNAH vs acute bleed vs rectal bleed. Unlikely bleeding disorder, hemmorage, hemodynamic instability. Pending labs, urine Differential Diagnosis Differential Diagnoses: The differential diagnosis associated with the presentation includes Hx and pe concerning for HANNAH vs acute bleed vs rectal bleed. Unlikely bleeding disorder, hemmorage, hemodynamic instability. Admission/Observation Consideration of admission/observation: Escalation of care including admission/observation considered Lab Data Labs: Lab Results 10/04/23 Range/Units 14:49 Stool Occult Blood POSITIVE (NEGATIVE) Critical Care Time Critical Care Time Critical Care Time: Yes Total Critical Care Time: 45 Attestation: I attest to this time spent taking care of the patient, obtaining history, physical, reviewing labs, imaging, speaking to my attending, specialist or hospitalist. Discharge Plan Discharge Clinical Impression: Acute lower GI bleeding, Microcytic anemia Patient Disposition: Home, Self-Care Instructions: Anemia (ED) Additional Instructions: Take your medications as prescribed. If you were prescribed antibiotics today, it is important that you take your medication to their entirety, do not skip any doses, do not finish them early. Follow-up with your primary care provider this week. Return to the emergency department with new or worsening symptoms. Such as fevers, chills, chest pain, shortness of breath, nausea, vomiting, dizziness, headache, vision changes, lethargy In case of emergency call 911 Prescriptions: No Action omeprazole 20 mg capsule,delayed release(DR/EC) 20 mg PO DAILY valacyclovir 1 gram tablet 1,000 mg PO DAILY Qty: 30 0RF Rx Instructions: Use p.r.n. for 3-5 days for outbreaks. Referrals: [facility] – [place] [facility] [Provider Group] - 1 day Sara Kumar MD [Primary Care Provider] - 2 days Stand Alone Forms: Work/School Release Print Language: Frisian
--- NOTE | 2023-10-04 14:42 | PC.NURSE ---
Pt presents to ED from home, was told to come in due to abnormal labs, low H/H. Pt reports no symptoms, denies any SOB or CP, no dizziness. Alert and oriented, breathing even and unlabored, skin pale.
--- NOTE | 2023-10-04 14:51 | MHC.EDTECH ---
Attempted to draw blood on pt however pt is a difficult draw. Attemped draw in triage x2 unsucessful. Then attempted draw by myself in pt room x2 unsuccessful. Provider Tony ROD notified who is opting to insert US guided IV at this time as pt will require fluids and possibly blood products.
[2023-10-04 14:58] LABS: OBS Int Ctl Valid YES; OBS1 POSITIVE (NEGATIVE)
--- NOTE | 2023-10-04 15:15 | PC.NURSE ---
Two providers attempted US IV for blood and access, unsuccessful. Pt hard stick.
--- NOTE | 2023-10-04 16:24 | PC.NURSE ---
Provider at bedside placing central line. RN and tech at bedside. 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
[2023-10-04 17:03] LABS: MANUAL DIFF FLAG NO
[2023-10-04 17:10] LABS: Basophils Percent Auto 0.3 % (0-2); Eosinophils Percent Auto 0.4 % (0-4); Hematocrit 23.6 % (37.0-47.0); Imm Gran Abs Auto 0.06 X10*3/uL (0.00-0.03); Imm Gran Pct Auto 0.9 % (0.0-0.4); Lymphocytes Absolute Auto 1.2 X10*3/uL (1.2-4.9); Lymphocytes Percent Auto 17.5 % (20-40); Mean Corpuscular HGB Conc 26.3 g/dl (31.0-35.0); Mean Corpuscular Hemoglobin 16.1 pg (27.0-33.0); Mean Platelet Volume 9.9 fL (9.4-12.3); Monocytes Absolute Auto 0.4 X10*3/uL (0.1-1.2); Monocytes Percent Auto 5.3 % (2-11); Neutrophils Absolute Auto 5.3 x10*3/uL (2.0-8.3); Neutrophils Percent Auto 75.6 % (45-73); Platelet Count 302 X10*3/uL (160-400); Red Blood Count 3.86 X10*6/uL (4.20-5.50); Red Cell Distribution Width 18.7 % (11.0-16.0)
[2023-10-04 17:22] LABS: Alanine Aminotransferase 25 U/L (0-31); Albumin Level 3.9 g/dL (3.5-5.0); Alkaline Phosphatase 68 U/L (39-117); Anion Gap 12 (12-20); Aspartate Amino Transferase 21 U/L (5-31); Bilirubin Total 0.5 mg/dL (0.0-1.0); Blood Urea Nitrogen 10 mg/dL (9-16); Calcium 9.5 mg/dL (8.4-10.2); Carbon Dioxide 26 mmol/L (22-29); Chloride 105 mmol/L (96-108); Estimated Glomerular Filt Rate > 60; Glucose Random 103 mg/dL (60-115); Potassium 4.1 mmol/L (3.3-5.1); Sodium 139 mmol/L (135-145); Total Protein 7.4 g/dL (6.5-8.0)
[2023-10-04 17:25] LABS: Mean Corpuscular Volume 61.1 fL (80.0-98.0)
[2023-10-04 17:28] LABS: Hemoglobin 6.2 g/dl (12.0-16.0)
[2023-10-04 17:36] LABS: INTERNATIONAL NORM RATIO 1.2 (0.9-1.1)
[2023-10-04 17:39] LABS: Partial Thromboplastin Time 28.5 SEC (26.0-36.8)
[2023-10-04 17:40] LABS: HCG Quantitative < 2 mIU/mL; Troponin-I High Sensitivity < 2.7 ng/L (<3.5-17.0)
--- NOTE | 2023-10-04 17:51 | PC.NURSE ---
Triple lumen central cath place in right femoral by . Blood sent. Pt denies any new complaints
--- NOTE | 2023-10-04 18:45 | PC.NURSE ---
First bag of RBCs transfusing, this RN remained at bedside for first 15 mins. Pt tolerated transfusion well, no transfusions reactions noted. VSS
[2023-10-04] MEDS: iohexoL 350 MG/ML 100 ML INFUS..BTL 80 ML IV (20:40)
[2023-10-05 00:10] LABS: Hemoglobin 8.5 g/dl (12.0-16.0)
[2023-10-05 01:17] VITALS: BP 107/53; PULSE 70
[2023-10-05 01:18] VITALS: BP 118/83; PULSE 81
[2023-10-05 01:19] VITALS: BP 123/70; PULSE 81
[2023-10-05 02:04] VITALS: BP 123/70; PULSE 81; RESP 12; TEMP 36.9; O2SAT 98
== END 2023-10-05 02:05 | disposition home or self-care (01) ==
PROVIDERS: Nurse Practitioner Family; Physician Assistant; Emergency Provider Emergency Medicine; PCP Internal Medicine
DX: K92.2 Gastrointestinal hemorrhage, unspecified (principal); D50.9 Iron deficiency anemia, unspecified; R07.89 Other chest pain; R79.89 Other specified abnormal findings of blood chemistry; R10.2 Pelvic and perineal pain; R11.2 Nausea with vomiting, unspecified; Z79.899 Other long term (current) drug therapy
CPT/HCPCS: 36415; 36430; 70450; 74178; 80053; 82272; 84484; 84702; 85014; 85018; 85025; 85610; 85730; 86850; 86900; 86901; 86923; 93005; 96360; 96361; 99285; P9016; Q9967

== ENCOUNTER → 2023-10-04 13:46 | Outpatient (BNV) | payer BC, SELFPAY | PROVIDERS: Emergency Provider Emergency Medicine; PCP Internal Medicine; Visit Provider Internal Medicine Cardiovascular Disease | DX: R07.9 Chest pain, unspecified (principal) | CPT/HCPCS: 93010 ==

== ENCOUNTER 2023-10-06 13:08 | Outpatient (AMB) | payer BC, SELFPAY ==
[2023-10-06 13:15] VITALS: BP 122/70; BMI 34.6
--- NOTE | 2023-10-06 13:15 | MHC.PC.OV ---
Vital Signs 10/06/23 13:15 Height 5 ft Weight 177 lb BMI 34.6 BP 122/70 Blood Pressure Location Lt brachial Position Sitting Intake Visit Reasons: [facility]F [facility] Low Hemoglobin Die Inspector Required: No Accompanied by: Self / Same As Patient Allergies No Known Allergies Allergy (Verified 10/06/23 13:40) Medication List - Last Reconciled 10/06/23 by Sara Orr MD ferrous sulfate 325 mg PO Q OTHER DAY omeprazole 20 mg PO DAILY valacyclovir 1,000 mg PO DAILY Tobacco use date assessed: 06/30/23 Dental Screening Dental Screen Date: 06/30/23 HPI HPI Comments History of Present Illness Details This is a 38-year-old female with chronic GERD and hepatitis-C that comes today as ER discharge follow-up due to microcytic anemia requiring blood transfusion. Last hemoglobin was 8.5 and this will be repeated in 2 weeks. She denies any menometrorrhagia. Has an occult blood positive in stool and will be referred to Gastroenterology for colonoscopy. Said that last year had blood in the stools but that resolve on its own. Will also be referred to Hematology-Oncology. Has chronic GERD stable with omeprazole. Has hepatitis-C most likely contracted by past use of IV heroin and will also be referred to Gastroenterology for further evaluation and treatment. Denies any chest pain or shortness on breath. [facility] Medical History (Updated 10/06/23 @ 20:49 by Sara Orr MD) Hearing loss in left ear Surgical History History of ear surgery Family History Father Throat cancer Lung cancer Mother No problems noted. 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 Jack Snowden, Vickie Owens, Ramiro Mccarty and colleagues, with an educational alicia from [employer]. Review of Systems Const All systems reviewed & are unremarkable except as noted in HPI and below Card Denies chest pain at rest, Denies chest pain with activity, Denies edema, Denies irregular heart rhythm, Denies claudication, Denies dyspnea, Denies dyspnea on exertion, Denies orthopnea, Denies paroxysmal nocturnal dyspnea and Denies slow heart rate Resp Denies cough, Denies dyspnea and Denies dyspnea on exertion Physical exam (Primary Care) Vital Signs: Last Vital Signs BP 122/70 10/06/23 13:15 BMI result Body Mass Index 34.6 Tobacco/Smoking Status: Tobacco use Status Tobacco use date assessed 06/30/23 10/06/23 13:21 Patient Tobacco Use Status Never used Tobacco 10/06/23 13:21 e-Cigarette/Vaping Use Never Used 10/06/23 13:21 Thrive Assessment: Date of Thrive Assessment Date Thrive assessed 06/30/23 10/06/23 13:21 Resp Effort & Inspection: normal respiratory effort Auscultation: clear to auscultation bilaterally Cardio Jugular venous distension: no JVD Rate: regular rate Rhythm: regular rhythm Heart sounds: S1 normal heart sound present and S2 normal heart sound present Extrem General: Yes full ROM Assessment and Plan Assessment & Plan (1) Microcytic anemia: Code(s): D50.9 - Iron deficiency anemia, unspecified Plan: Referred to Hematology-Oncology. Continue ferrous sulfate with vitamin-C. Avoid taking omeprazole with the ferrous sulfate. Repeat CBC in 2 weeks. (2) Occult blood positive stool: Code(s): R19.5 - Other fecal abnormalities Plan: Referred to Gastroenterology. (3) Hepatitis C: Comment: history of iv heroin use Code(s): B19.20 - Unspecified viral hepatitis C without hepatic coma Qualifiers: Viral hepatitis chronicity: unspecified Hepatic coma status: without hepatic coma Qualified Code(s): B19.20 - Unspecified viral hepatitis C without hepatic coma Plan: Referred to Gastroenterology. (4) Chronic GERD: Code(s): K21.9 - Gastro-esophageal reflux disease without esophagitis Plan: Continue PPIs. Orders: Orders Complete Blood Count Auto Diff 2 Weeks D64.9 - Anemia, unspecified IRON PROFILE Today D64.9 - Anemia, unspecified Hepatitis C Genotype 2 Weeks B19.20 - Unspecified viral hepatitis C without hepatic coma IRON PROFILE 2 Weeks D64.9 - Anemia, unspecified Transglutaminase Ab IgG 2 Weeks D50.9 - Iron deficiency anemia, unspecified Endomysial IgA rflx Titer 2 Weeks D50.9 - Iron deficiency anemia, unspecified Hepatitis C Viral Load 2 Weeks B19.20 - Unspecified viral hepatitis C without hepatic coma Transglutaminase IgA 2 Weeks D50.9 - Iron deficiency anemia, unspecified Gliadin Ab Panel 2 Weeks D50.9 - Iron deficiency anemia, unspecified Reticulocyte Count 2 Weeks D50.9 - Iron deficiency anemia, unspecified Hemoglobin Electrophoresis 2 Weeks D50.9 - Iron deficiency anemia, unspecified Referrals Open Access Screening Colonoscopy Referral R19.5 - Other fecal abnormalities, Z12.11 - Encounter for screening for malignant neoplasm of colon Gastroenterology Referral B19.20 - Unspecified viral hepatitis C without hepatic coma Hematology & Oncology Referral D50.9 - Iron deficiency anemia, unspecified Medications: New ascorbate calcium (vitamin C) 500 mg PO DAILY 90 tabs 0RF 90 days Changed From ferrous sulfate 325 mg PO Q OTHER DAY 30 tabs 0RF To ferrous sulfate 325 mg PO DAILY 90 tabs 1RF 90 days Coding Level of Care Code Est Pt Level 4 (38195) Complex EM visit Add On G2211 Diagnoses Microcytic anemia D50.9 Occult blood positive stool R19.5 Hepatitis C virus infection without hepatic coma, unspecified chronicity B19.20 Viral hepatitis chronicity: unspecified Hepatic coma status: without hepatic coma Chronic GERD K21.9 Time Spent (min) 23
== END 2023-10-06 13:56 | disposition home or self-care (01) ==
PROVIDERS: PCP Internal Medicine; Visit Provider Internal Medicine
DX: D50.9 Iron deficiency anemia, unspecified (principal); R19.5 Other fecal abnormalities; B19.20 Unspecified viral hepatitis C without hepatic coma; K21.9 Gastro-esophageal reflux disease without esophagitis
CPT/HCPCS: 99214

== ENCOUNTER 2023-10-08 08:14 | Outpatient (AMB) | payer BC, SELFPAY ==
--- NOTE | 2023-10-08 08:16 | A.OFFVIS_ITS ---
Vital Signs 10/08/23 08:18 Height 5 ft Weight 177 lb 14.609 oz BMI 34.7 BP 112/70 Blood Pressure Location Rt brachial Position Sitting Respiration 16 Pulse 79 Pulse Source Pulse Oximeter Pulse Oximetry (%) 98 Oxygen Delivery Method Room Air Intake Visit Reasons: RA/CM Intake Note: Patient presents for RA. Allergies No Known Allergies Allergy (Verified 10/08/23 08:19) Medication List - Last Reconciled 10/08/23 by Alistair Malin MD ascorbate calcium (vitamin C) 500 mg PO DAILY 90 days ferrous sulfate 325 mg PO DAILY 90 days omeprazole 20 mg PO DAILY valacyclovir 1,000 mg PO DAILY HPI Comments Details: This is a 38-year-old female with seropositive RA who returns for follow-up after completion of her diagnostic workup. She needs to feel about the same. Recent CBC showed significantly low hemoglobin, and she received blood transfusion. She is scheduled to see forest products gatherer. She states that she has hepatitis-C and never received treatment. Initial history: This is a 38-year-old female presents for evaluation of rheumatoid arthritis. She stated that she was diagnosed with rheumatoid arthritis when she was 19. She used to follow-up with Dr. Mercedes. She stated that she was started on methotrexate, she took it for a few months, it was not effective, Enbrel was added and it was dramatically helpful. Then methotrexate was discontinued. She was on Enbrel about a year and she had to stop it as her insurance no longer covered it. Had not seen a claims vice president since age 20. She is complaining of diffuse joint pain especially her hands, her knees and her back. Morning stiffness of her hands lasts about an hour. She gets intermittent swelling of her wrists and fingers. She takes ibuprofen around 1200 mg a day and takes 6 Tylenol a day as well. She denies any significant skin rashes, denies any fevers or weight loss. Denies any history of DVT/PE. She has a cousin with lupus and rheumatoid arthritis. She is unaware of any immediate family member with an autoimmune rheumatic disease. She denies history of psoriasis. Denies history suggestive of uveitis or inflammatory bowel disease. She has hearing loss. 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 She gets herpes labialis about once a year at the most treated with valacyclovir as needed [facility] Medical History Hearing loss in left ear Surgical History History of ear surgery Family History Father Throat cancer Lung cancer Mother No problems noted. 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 Current occupational exposures/hazards: No Cognitive needs: No Hearing needs: Yes Vision needs: No Female Reproductive History Menstrual Age of Menarche: 15 Review of Systems Const Denies fever(s) and Denies weight loss Musc Reports back pain, Reports arthralgias, Reports joint swelling, Reports limited range of motion and Reports stiffness Skin/Breast Denies rash Physical Exam Vital Signs: Last Vital Signs Pulse 79 10/08/23 08:18 Resp 16 10/08/23 08:18 BP 112/70 10/08/23 08:18 Pulse Ox 98 10/08/23 08:18 Oxygen Delivery Method Room Air 10/08/23 08:18 BMI result Body Mass Index 34.7 Const General: cooperative, healthy appearing and comfortable Nutritional Appearance: obese Orientation/consciousness: patient oriented x3 Limitations: no limitations HEENT Head: Yes normocephalic and Yes atraumatic Mouth: moist mucous membranes Resp Effort & Inspection: normal respiratory effort and able to speak in complete sentences Auscultation: clear to auscultation bilaterally Cardio Rate: regular rate Rhythm: regular rhythm Skin Other: Dry skin on extensor surface of both elbows Neuro General: patient oriented x3 Extrem Other: Puffiness of MCPs bilaterally Left 3rd and 5th MCP tenderness Left 3rd flexor tendon tenderness Positive MCP squeeze test on the left No wrist swelling or tenderness Few PIP tenderness with no DIP tenderness left hand Positive MCP squeeze test right hand Normal nailfold capillaroscopy No elbow pain with full flexion-extension Firm nodule on both elbows, could be a rheumatoid nodule Normal range of motion of shoulders bilaterally Negative straight leg raise test bilaterally Right trochanteric bursa area tenderness with negative Marleni's test Bilateral knee pain with full flexion Right ankle mild swelling and tenderness Multiple tender MTPs right foot and positive MTP squeeze test Right foot bunion Assessment & Plan Assessment & Plan (1) Rheumatoid arthritis: Comment: dx age 19 (+RF, may be related to hep C, +++CCP) MTX started ineffective Enbrel added, then MTX DC Enbrel stopped due to loss of insurance at 20, no DMARDs since Code(s): M06.9 - Rheumatoid arthritis, unspecified Category: Medical Plan: This is a 38-year-old female with seropositive RA who presents for follow-up. Her labs showed a borderline positive rheumatoid factor which may be related to her hepatitis-C. Her hepatitis-C is untreated and patient is seeing Gastroenterology soon. But she has significantly elevated CCP antibody. We will need to start DMARDs however I will avoid biologics at this point given her hepatitis-C. Advised patient to discuss her positive hepatitis-C with Gastroenterology, Discussed risks and benefits of hydroxychloroquine. Patient agreed to proceed. Start hydroxychloroquine 200 mg Twice daily Labs before next visit in 3 months (2) Long-term use of hydroxychloroquine: Code(s): Z79.899 - Other exterminator helper (current) drug therapy Category: Medical Plan: Discussed risk of retinopathy associated with hydroxychloroquine. Advised patient to make an appointment with lmft (3) Microcytic anemia: Code(s): D50.9 - Iron deficiency anemia, unspecified Category: Medical Plan: Follow-up with GI Plan I spent 26 minutes reviewing patient's chart, evaluating patient, ordering diagnostic workup, counseling patient and documenting in the chart Orders: Orders Complete Blood Count Auto Diff 3 Months M05.9 - Rheumatoid arthritis with rheumatoid factor, unspecified Erythrocyte Sedimentation Rate 3 Months M05.9 - Rheumatoid arthritis with rheumatoid factor, unspecified Comprehensive Met. Panel 3 Months M05.9 - Rheumatoid arthritis with rheumatoid factor, unspecified C Reactive Protein 3 Months M05.9 - Rheumatoid arthritis with rheumatoid factor, unspecified Medications: New hydroxychloroquine 200 mg PO BID 60 tabs 2RF Coding Level of Care Code Est Pt Level 4 (78157) Diagnoses Rheumatoid arthritis M06.9 Long-term use of hydroxychloroquine Z79.899 Microcytic anemia D50.9
[2023-10-08 08:18] VITALS: BP 112/70; PULSE 79; RESP 16; O2SAT 98; BMI 34.7
== END 2023-10-08 08:43 | disposition home or self-care (01) ==
PROVIDERS: PCP Internal Medicine; Visit Provider Student in an Organized Health Care Education/Training Program
DX: M06.9 Rheumatoid arthritis, unspecified (principal); Z79.899 Other long term (current) drug therapy; D50.9 Iron deficiency anemia, unspecified
CPT/HCPCS: 99214

== ENCOUNTER 2023-10-11 11:46 | Outpatient (REF) | payer BC, SELFPAY ==
[2023-10-11 12:35] LABS: MANUAL DIFF FLAG NO
[2023-10-11 12:42] LABS: Basophils Percent Auto 0.2 % (0-2); Eosinophils Absolute Auto 0.2 X10*3/uL (0.0-0.4); Eosinophils Percent Auto 3.3 % (0-4); Hematocrit 35.1 % (37.0-47.0); Hemoglobin 9.8 g/dl (12.0-16.0); Imm Gran Abs Auto 0.01 X10*3/uL (0.00-0.03); Imm Gran Pct Auto 0.2 % (0.0-0.4); Lymphocytes Absolute Auto 1.5 X10*3/uL (1.2-4.9); Lymphocytes Percent Auto 30.3 % (20-40); Mean Corpuscular HGB Conc 27.9 g/dl (31.0-35.0); Mean Corpuscular Hemoglobin 19.3 pg (27.0-33.0); Mean Platelet Volume 9.5 fL (9.4-12.3); Monocytes Absolute Auto 0.3 X10*3/uL (0.1-1.2); Monocytes Percent Auto 6.8 % (2-11); Neutrophils Absolute Auto 2.9 x10*3/uL (2.0-8.3); Neutrophils Percent Auto 59.2 % (45-73); Platelet Count 256 X10*3/uL (160-400); Red Blood Count 5.09 X10*6/uL (4.20-5.50); Red Cell Distribution Width 26.7 % (11.0-16.0); White Blood Count 4.8 X10*3/uL (4.8-10.8)
[2023-10-11 12:55] LABS: Alanine Aminotransferase 46 U/L (0-31); Albumin Level 4.3 g/dL (3.5-5.0); Alkaline Phosphatase 76 U/L (39-117); Anion Gap 14 (12-20); Aspartate Amino Transferase 36 U/L (5-31); Basophils Percent Auto 0.4 % (0-2); Bilirubin Total 0.9 mg/dL (0.0-1.0); Blood Urea Nitrogen 13 mg/dL (9-16); Calcium 10.1 mg/dL (8.4-10.2); Carbon Dioxide 28 mmol/L (22-29); Chloride 101 mmol/L (96-108); Eosinophils Absolute Auto 0.2 X10*3/uL (0.0-0.4); Eosinophils Percent Auto 3.4 % (0-4); Estimated Glomerular Filt Rate > 60; Glucose Random 100 mg/dL (60-115); Hematocrit 35.2 % (37.0-47.0); Hemoglobin 9.9 g/dl (12.0-16.0); Imm Gran Abs Auto 0.03 X10*3/uL (0.00-0.03); Imm Gran Pct Auto 0.6 % (0.0-0.4); Immature Retic Fraction 46.2 % (3.0-15.9); Iron 103 mcg/dL (30-160); Lactate Dehydrogenase 214 U/L (122-220); Lymphocytes Absolute Auto 1.5 X10*3/uL (1.2-4.9); Lymphocytes Percent Auto 30.4 % (20-40); MANUAL DIFF FLAG SCAN; Mean Corpuscular HGB Conc 28.1 g/dl (31.0-35.0); Mean Corpuscular Hemoglobin 19.5 pg (27.0-33.0); Mean Corpuscular Volume 69.3 fL (80.0-98.0); Mean Platelet Volume 9.6 fL (9.4-12.3); Monocytes Absolute Auto 0.3 X10*3/uL (0.1-1.2); Monocytes Percent Auto 6.3 % (2-11); Neutrophils Absolute Auto 2.9 x10*3/uL (2.0-8.3); Neutrophils Percent Auto 58.9 % (45-73); Percent Iron Saturation 26 % (15-50); Platelet Count 245 X10*3/uL (160-400); Potassium 4.3 mmol/L (3.3-5.1); Red Blood Count 5.08 X10*6/uL (4.20-5.50); Red Cell Distribution Width 26.9 % (11.0-16.0); Retic HGB Equivalent 24.5 pg (30.0-35.0); Reticulocyte Percent 3.4 % (0.5-1.8); Reticulocytes Absolute 0.173 X10*6/uL (0.026-0.095); SCAN SMEAR FLAG 1; Sodium 139 mmol/L (135-145); Total Iron Binding Capacity 391 mcg/dL (228-428); Total Protein 8.2 g/dL (6.5-8.0); Unsaturated Iron Binding 288 ug/dL
[2023-10-11 13:31] LABS: SLIDE REVIEW VERIFIED
[2023-10-11 13:53] LABS: Ferritin 15 ng/mL (10-122)
[2023-10-11 14:00] LABS: Vitamin B12 372 pg/mL (200-900)
[2023-10-12 20:53] LABS: Anti DNA DS Antibody <1 IU/mL
[2023-10-13 07:22] LABS: HCV Log PCR 5.48 Log IU/mL (NOT DETECTED); HepC Viral Load 300000 IU/mL (NOT DETECTED)
[2023-10-13 08:04] LABS: Gliadin Deamidated IgA Ab <1.0 U/mL; Gliadin Deamidated IgG Ab <1.0 U/mL; Transglutaminase IgA <1.0 U/mL
[2023-10-13 13:13] LABS: Transglutaminase Ab IgG <1.0 U/mL; Transglutaminase IgA <1.0 U/mL
[2023-10-13 13:28] LABS: Hematocrit 35.3 % (35.0-45.0); Hemoglobin 9.8 g/dL (11.7-15.5); MCH 19.2 pg (27.0-33.0); MCV 69.1 fL (80.0-100.0); RBC 5.11 Million/uL (3.80-5.10); RDW 27.4 % (11.0-15.0)
[2023-10-18 16:49] LABS: Hepatitis C Genotype 1a
[2023-10-21 12:29] LABS: Endomysial IgA Antibody Negative (Negative)
== END 2023-10-11 11:47 | disposition home or self-care (01) ==
LOC: HO.LAB 11:46
PROVIDERS: Absent Provider Internal Medicine; PCP Internal Medicine; Visit Provider Internal Medicine Medical Oncology
DX: D64.9 Anemia, unspecified (principal); D50.9 Iron deficiency anemia, unspecified; B19.20 Unspecified viral hepatitis C without hepatic coma; M06.9 Rheumatoid arthritis, unspecified
CPT/HCPCS: 36415; 80053; 82607; 82728; 82746; 83020; 83540; 83615; 85014; 85018; 85025; 85041; 85045; 86225; 86231; 86258; 86364; 87522; 87902

== ENCOUNTER 2023-10-13 13:14 | Outpatient (AMB) | payer BC, SELFPAY ==
[2023-10-13 13:19] VITALS: BP 110/57; PULSE 81; BMI 34.6
--- NOTE | 2023-10-13 13:19 | A.OFFVIS_ITS ---
Vital Signs 10/13/23 13:19 Height 5 ft Weight 177 lb BMI 34.6 BP 110/57 L Blood Pressure Location Lt brachial Position Sitting Pulse 81 Intake Visit Reasons: *URGENT* LOW HGB, ? LOWER GI BLEED VIA ED. Intake Note: Patient new consult for Low HGB and lower GI bleed via ED. Patient cc: constipation, always have to clear her throat, GERD with burning sensation and chocking on the night time. Circuit Walker Required: No Accompanied by: Self / Same As Patient Allergies No Known Allergies Allergy (Verified 10/13/23 13:18) HPI Comments Details: 38 y.o F with PMH of RA on plaquenil, significant hx of ear infections, who is here for profound HANNAH. Pt was getting routine blood work done in July through her Rheum that showed HB <7 with microcytosis. Was sent to ER for blood transfusions x2. Also seeing heme for the same. Currently taking ferrous sulphate 325 daily. Also plan fro IV iron through heme. No hx of abd pain, melena, hematochezia, menorrhagia. No fam hx of blood cancers or colon cancer. Does not smoke or used to smoke. No etOH. No new meds in the past 6 months. Has nto started plaquenil yet. Celiac panel negative. Low ferritin. Stool test + CT Abd/pel with hepatosplenomegaly. HCV +, genotype pending. HBV Ag and core Ab neg. HIV unk. 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 [facility] Medical History (Updated 10/08/23 @ 13:24 by Rodríguez De La Garza MD) Hearing loss in left ear Surgical History (Updated 10/13/23 @ 13:23 by Gia Sherman) History of ear surgery Family History Father Throat cancer Lung cancer Mother No problems noted. 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 Current occupational exposures/hazards: No Cognitive needs: No Hearing needs: Yes Vision needs: No Female Reproductive History Menstrual Age of Menarche: 15 Review of Systems Const All systems reviewed & are unremarkable except as noted in HPI and below Physical Exam Vital Signs: Last Vital Signs Pulse 81 10/13/23 13:19 BP 110/57 L 10/13/23 13:19 BMI result Body Mass Index 34.6 No apparent distress Nonicteric Abdomen soft, nondistended Alert and oriented x3, normal gait Assessment & Plan Assessment & Plan (1) Microcytic anemia: Code(s): D50.9 - Iron deficiency anemia, unspecified Category: Medical (2) Occult blood positive stool: Code(s): R19.5 - Other fecal abnormalities Category: Medical (3) Hepatitis C: Comment: history of iv heroin use Code(s): B19.20 - Unspecified viral hepatitis C without hepatic coma Category: Medical Qualifiers: Viral hepatitis chronicity: unspecified Hepatic coma status: without hepatic coma Qualified Code(s): B19.20 - Unspecified viral hepatitis C without hepatic coma Plan 1. HANNAH: Will arrange for urgent EGD/colo for further evaluation of HANNAH with + occult stool test. Ddx include malabsorption, occult bleeding from large polyp mass, inadequate dietary intake. PEG instructions reviewd with the pt and shes aware of the need for ride back home. Plan: - EGD/colo to be booked - PEG Rxed - Pt reports constipation at baseline so additional dulcolax x2 days prescribed 2. Chronic HCV Coinfection with HBV ruled out. HIV Ab ordered. Genotype pending Plan: - Await genotype - HIV Ab and fibrosure ordered - US ABd ordered - Tx to be initiated after work up for profiund anemia completed Follow up after scopes Orders: Orders HIV Ab/Ag Today B19.20 - Unspecified viral hepatitis C without hepatic coma Liver Fibrosis Pnl Today B19.20 - Unspecified viral hepatitis C without hepatic coma US abdomen complete Today B19.20 - Unspecified viral hepatitis C without hepatic coma Medications: New peg 3350-electrolytes 236-22.74-6.74 -5.86 gram (Golytely) as per split prep instructions, until fecal effluent is clear 240 mL PO Q10M 4,000 mL 0RF colonoscopy bisacodyl to start 2 days before colonoscopy 10 mg (2 x 5 mg) PO BID 2 days 8 tabs 0RF Coding Level of Care Code New Pt Level 4 (11000) Diagnoses Microcytic anemia D50.9 Occult blood positive stool R19.5 Hepatitis C virus infection without hepatic coma, unspecified chronicity B19.20 Viral hepatitis chronicity: unspecified Hepatic coma status: without hepatic coma
== END 2023-10-13 13:54 | disposition home or self-care (01) ==
PROVIDERS: PCP Internal Medicine; Visit Provider Internal Medicine
DX: D50.9 Iron deficiency anemia, unspecified (principal); R19.5 Other fecal abnormalities; B19.20 Unspecified viral hepatitis C without hepatic coma
CPT/HCPCS: 99204

== ENCOUNTER 2023-10-21 12:49 | Day surgery (SDC) | payer BC, SELFPAY ==
[2023-10-21 13:06] VITALS: BMI 34.6
[2023-10-21] MEDS: Lactated Ringers 1,000 ML 100 ML IVCONT (13:10)
[2023-10-21 13:12] LABS: UPreg QC Valid YES; Urine Pregnancy NEGATIVE (NEGATIVE)
[2023-10-21 13:30] VITALS: BP 122/74; PULSE 100; RESP 18; TEMP 36.8; O2SAT 98
--- NOTE | 2023-10-21 14:04 | MHC.SHP ---
Pre-Procedural Eval Section A - 24 Hr Update-Section A only Date of Service: 10/21/23 The patient is an INPATIENT: No The patient has been examined within 24 hours of the surgical procedure. The History & Physical has been completed within 30 days and I have reviewed it.: Yes Section B - Complete if H&P > 30 days Chief Complaint: Iron deficiency anemia, unspecified Allergies: Allergies Allergy/AdvReac Type Severity Reaction Status Date / Time No Known Allergies Allergy Verified 10/21/23 13:31 Plan Diagnosis/Plan: Unchanged I have reviewed the history and physical and performed a pertinent physical examination on my patient. No changes have occurred unless specified. Time Spent With Patient Time: Total time managing care of this patient today ____ minutes.
--- NOTE | 2023-10-21 14:48 | P.OPN-COLO_ITS ---
Colonoscopy Operative Note Operative Note Date of Service: 10/21/23 Narrative: Procedure: Upper endoscopy and colonoscopy Indication: Iron deficiency anemia Endoscopist: Brittany Olivares MD Anesthesia Provider: Tara Ross CRNA Anesthesia type: MAC Instrument: [id number] and [id number] Colonoscopy Procedure:? The procedure, indications, preparation and potential complications were reviewed with the patient, who indicated understanding and gave written informed consent to proceed. A digital rectal exam was performed which was normal.? A distal attachment cap was affixed to the tip of the scope and the colonoscope was then inserted through the anus and advanced through the colon and advanced to the cecum at 70 cm and terminal ileum.? Appendiceal orifice and ileocecal valve were identified. Mucosa was carefully examined under high definition white light as the instrument was slowly withdrawn in a retrograde panoramic fashion. Retroflexion was performed in ascending colon and rectum. The procedure was not difficult. The quality of the prep was BBPS: 3+3+3 = excellent Withdrawal time 7 minutes Limitations: No limitations Findings: Mucosa: Normal mucosa to cecum and terminal ileum. Protruding lesions: * Medium internal hemorrhoids without stigmata of recent bleeding. EGD Procedure:?? The patient was then turned for the upper endoscopy The endoscope was introduced through the bite block, and advanced to the 2nd part of the duodenum. The mucosa was carefully examined on slow withdrawal of the endoscope. The patient tolerated the procedure well. There were no immediate complications.? EGD Findings:? * Esophagus:? There was a focal patch of heterotopic gastric mucosa in the upper esophagus. Remaining mucosa was normal. The Z-line was at 38 cm. * Stomach:Normal gastric mucosa. Retroflexion was performed in the cardia. Random cold forceps biopsies were taken to rule out H pylori * Duodenum:? Normal duodenal mucosa. Cold forceps biopsies were taken from the duodenal bulb and 2nd portion of the duodenal to rule out celiac sprue. Impression: * Inlet patch * Normal stomach (biopsy) * Normal duodenum (biopsy) * Normal colon and terminal ileum mucosa * Hemorrhoids Recommendations:?? * No overt source of GI bleeding identified on bidirectional endoscopy today. * Follow up path results. * If normal, recommend video capsule endoscopy as outpatient to be done in the next 4-6 weeks * Continue iron infusions as per Hematology.
[2023-10-21 14:55] VITALS: BP 101/50; PULSE 61; RESP 16; TEMP 36.1; O2SAT 97
[2023-10-21 15:10] VITALS: BP 128/77; PULSE 84; RESP 16; TEMP 36.1; O2SAT 100
--- NOTE | 2023-10-21 15:48 | P.CONAN_ITS ---
HPI - Anesthesia Eval Consult details Narrative: endo and colon screen PMFSH Active Problems Active Problems: All Active Problems Long-term use of hydroxychloroquine (Acute) Seropositive rheumatoid arthritis (Acute) Microcytic anemia (Acute) Occult blood positive stool (Acute) Hepatitis C (Acute) Dry skin (Acute) Hx of herpes genitalis (Acute) Well woman exam with routine gynecological exam (Acute) Screening for cervical cancer (Acute) Left otitis media with effusion (Acute) Obesity (BMI 35.0-39.9 without comorbidity) (Acute) Chronic GERD (Acute) Past Medical History Medical History Anemia Hx of rheumatoid arthritis Hearing loss in left ear Family History Family History Father Throat cancer Lung cancer Mother No problems noted. Family history of problems with anesthesia: No Surgical History Surgical History History of ear surgery History of Problems with Anesthesia: No Social History Social History Housing: House Are you a primary acute care occupational therapist to a significant other at home: No Do you presently have visiting nurse or other home services: No Alcohol intake: current Alcohol intake frequency: holidays/special occasions only Alcohol type: wine Patient Tobacco Use Status: Never used Tobacco e-Cigarette/Vaping Use: Never Used Second Hand Smoke Exposure: No service: No Current occupational status: employed 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 Current occupational exposures/hazards: No Cognitive needs: No Hearing needs: Yes Vision needs: No Meds Allergies Allergy/AdvReac Type Severity Reaction Status Date / Time No Known Allergies Allergy Verified 10/21/23 13:31 Home Medications ?Medication ?Instructions ?Recorded ?Confirmed ?Last Taken ?Type omeprazole 20 mg capsule,delayed 20 mg PO DAILY 06/30/23 10/21/23 Unknown History release Exam Height,Weight and Vital Signs: Height 5 ft Weight 80.286 kg Last Vital Signs Temp 97 F 10/21/23 15:10 Pulse 84 10/21/23 15:10 Resp 16 10/21/23 15:10 BP 128/77 10/21/23 15:10 Pulse Ox 100 08/22/24 15:10 O2 Del Method Room Air 10/21/23 15:10 Pertinent Lab Results Pertinent Lab Results: Laboratory Tests 10/21/23 12:45 Urine Test NEGATIVE Airway Mallampati Class: II TM Dist: >3cm Neck ROM: Limited Heart: rrr Lungs: cta Assessment and Plan Assessment Anesthesia Assessment: Anesthesia Plan Discussed Final Anesthetic Review Family History of Problems with Anesthesia: No History of Problems with Anesthesia: No NPO: Yes ASA Class: III Final Preanesthetic Review: No Changes in Pt Med Stat, Meds/Allgs Chart Reviewed, Consent Obtained/Reviewed and Anes Risks/Benef Reviewed Patient Risk: Intermediate Procedure Risk: Low Anesthetic Plan Anesthetic Plan: MAC: Disposition: Standard PACU
== END 2023-10-21 15:47 | disposition home or self-care (01) ==
PROVIDERS: Anesthesiology; PCP Internal Medicine; Visit Provider Internal Medicine
PROC: (CPT 45378; principal; 2023-10-21 14:40)
DX: D50.9 Iron deficiency anemia, unspecified (principal); R19.5 Other fecal abnormalities; K64.8 Other hemorrhoids; K59.00 Constipation, unspecified; K21.9 Gastro-esophageal reflux disease without esophagitis; Q39.8 Other congenital malformations of esophagus; K29.70 Gastritis, unspecified, without bleeding; K29.80 Duodenitis without bleeding; M06.9 Rheumatoid arthritis, unspecified; B19.20 Unspecified viral hepatitis C without hepatic coma; Z79.899 Other long term (current) drug therapy
CPT/HCPCS: 45378; 43239; 81025; 88305; 88313; 88342; J1596; J2704

== ENCOUNTER → 2023-10-21 12:49 | Outpatient (BNV) | payer BC, SELFPAY | PROVIDERS: PCP Internal Medicine; Visit Provider Internal Medicine | DX: Z12.11 Encounter for screening for malignant neoplasm of colon (principal); D50.9 Iron deficiency anemia, unspecified; Q40.2 Other specified congenital malformations of stomach; K64.8 Other hemorrhoids | CPT/HCPCS: 43239; 45378 ==

== ENCOUNTER 2023-10-28 09:30 | Outpatient (REF) | payer BC, SELFPAY ==
--- NOTE | ~2023-10-28 | US_ITS ---
EXAMINATION: US ABDOMEN COMPLETE CLINICAL INFORMATION: Unspecified viral hepatitis C without hepatic coma. COMPARISON: None available. TECHNIQUE: Real-time imaging of the abdominal viscera. Limited visualization due to bowel gas. FINDINGS: PANCREAS: Limited visualization of pancreatic tail and head. Imaged portion of pancreatic body is unremarkable. ABDOMINAL AORTA: Limited visualization of the abdominal aorta. Imaged portion of the mid abdominal aorta is within normal limits in caliber. INFERIOR VENA CAVA: Visualized portions are normal. LIVER: Mildly increased hepatic parenchymal heterogeneity and echogenicity could be associated with hepatocellular disease/hepatic steatosis and substantially limits visualization. Correlation with liver function tests and clinical exam recommended to determine further management. GALLBLADDER: No gallstones. Borderline gallbladder wall thickening of 3 mm. COMMON BILE DUCT: Normal in caliber measuring 0.4 cm in diameter. RIGHT KIDNEY: No hydronephrosis. No renal calculi. Limited visualization. The kidney measures 9.8 cm in maximum dimension. LEFT KIDNEY: No hydronephrosis. No renal calculi. Limited visualization. The kidney measures 9.8 cm in maximum dimension. SPLEEN: Splenomegaly. The spleen measures 14.2 cm in maximum dimension. FREE FLUID: None. US/US abdomen complete IMPRESSION: 1. Mildly increased hepatic parenchymal heterogeneity and echogenicity could be associated with hepatocellular disease/hepatic steatosis and substantially limits visualization. Correlation with liver function tests and clinical exam recommended to determine further management. 2. Splenomegaly. Electronically signed by: Jerri Bains MD 11/08/2023 08:13 AM EDT
== END 2023-10-28 09:31 | disposition home or self-care (01) ==
LOC: HO.US 09:30
PROVIDERS: PCP Internal Medicine; Visit Provider Internal Medicine
DX: B19.20 Unspecified viral hepatitis C without hepatic coma (principal)
CPT/HCPCS: 76700

== ENCOUNTER → 2023-11-22 10:20 | Outpatient (BNV) | payer BC, SELFPAY | PROVIDERS: PCP Internal Medicine; Referring Provider Internal Medicine; Visit Provider Internal Medicine Medical Oncology | DX: D64.9 Anemia, unspecified (principal) | CPT/HCPCS: 99213 ==

== ENCOUNTER → 2024-01-03 11:10 | Outpatient (AMB) | payer BC, SELFPAY ==
--- NOTE | 2024-01-03 11:11 | A.OFFVIS_ITS ---
Intake Visit Reasons: f/u egd/colo Intake Note: Shelly presents as a phone call today for a EGD and COLO follow up. CC: She states that she is not having any concerns since her procedure and she just would like results. Supervisor Prep Required: No Allergies No Known Allergies Allergy (Verified 01/03/24 11:11) HPI Comments Details: 38 y.o F with PMH of RA on plaquenil, significant hx of ear infections, who is here for profound HANNAH. Pt was getting routine blood work done in July through her Rheum that showed HB <7 with microcytosis. Was sent to ER for blood transfusions x2. Also seeing heme for the same. Currently taking ferrous sulphate 325 daily. Also plan fro IV iron through heme. No hx of abd pain, melena, hematochezia, menorrhagia. No fam hx of blood cancers or colon cancer. Does not smoke or used to smoke. No etOH. No new meds in the past 6 months. Has nto started plaquenil yet. Celiac panel negative. Low ferritin. Stool test + CT Abd/pel with hepatosplenomegaly. HCV +, genotype pending. HBV Ag and core Ab neg. HIV unk. 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 10/21/23 EGD/colo: * Inlet patch * Normal stomach (biopsy) * Normal duodenum (biopsy) * Normal colon and terminal ileum mucosa * Hemorrhoids Path: A. Duodenum, biopsy: Chronic inactive duodenitis. B. Stomach, random, biopsy: Antral-type and oxyntic mucosa with mild chronic inactive inflammation; no Helicobacter organisms seen 01/03/24: Televisit for post EGD colonoscopy follow-up. Reviewed normal biopsy results. Plan was for capsule endoscopy, however patient did not show for 12/02 appt as she was not sure if she still needed to get this done. Continues on PO iron. H/H has improved. Ferritin remains <50. In terms of chronic HCV genotype 1a, is tx naiive. Fib 4 0.51 i.e not cirrhotic. Likely 2/2 IVDU in the past - reports sobriety x 7 years. [facility] Medical History (Updated 01/03/24 @ 12:45 by Brittany Olivares MD) Anemia Hx of rheumatoid arthritis Hearing loss in left ear Surgical History (Updated 01/03/24 @ 11:11 by GENE Cullen) Hx of colonoscopy History of esophagogastroduodenoscopy (EGD) History of ear surgery Family History Father Throat cancer Lung cancer Mother No problems noted. 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 Current occupational exposures/hazards: No Cognitive needs: No Hearing needs: Yes Vision needs: No Female Reproductive History Menstrual Age of Menarche: 15 Review of Systems Const All systems reviewed & are unremarkable except as noted in HPI and below Physical Exam Vital Signs: televisit: NAD Able to speak in full sentences No shortness of breath Telehealth Telehealth Telehealth Platform: Pulse 8 Location of provider rendering services: practice address Location of patient: address on file Patient Identification confirmed using: Name, : Yes Telehealth method: video Patient verbally consented to treatment: Yes Patient verbally consented to billing insurance company: Yes Patient informed of any privacy concerns related to visit: Yes Minutes spent on Phone/Video with Pt.: 17 Assessment & Plan Assessment & Plan (1) Iron deficiency anemia: Code(s): D50.9 - Iron deficiency anemia, unspecified Category: Medical Plan: Pt reports feeling better with PO iron and wonders if it was a one time self limiting event. Would like to hold off VCE at this time. Reviewed that unable to exclude occult losses at this time. Recommend holding iron x 4 weeks and repeating blood work. If H/H and iron profile trend down, will review VCE again with the pt. Otherwise, agree will be low yield. (2) Hepatitis C: Code(s): B19.20 - Unspecified viral hepatitis C without hepatic coma Category: Medical Qualifiers: Viral hepatitis chronicity: unspecified Hepatic coma status: without hepatic coma Qualified Code(s): B19.20 - Unspecified viral hepatitis C without hepatic coma Plan: Genotype 1a. Noncirrhotic and treatment naive. Msg sent to see if Epclusa vs Mavyret will be covered by insurance. Plan Follow up 6 weeks Orders: Orders Complete Blood Count no Diff 5 Weeks D50.9 - Iron deficiency anemia, unspecified Ferritin 5 Weeks D50.9 - Iron deficiency anemia, unspecified Coding Level of Care Code Tele Est Pt Level 4 (48074) Diagnoses Iron deficiency anemia D50.9 Hepatitis C virus infection without hepatic coma, unspecified chronicity B19.20 Viral hepatitis chronicity: unspecified Hepatic coma status: without hepatic coma
== END ==
LOC: HO.HGI 11:10
PROVIDERS: PCP Internal Medicine; Visit Provider Internal Medicine
DX: D50.9 Iron deficiency anemia, unspecified (principal); B19.20 Unspecified viral hepatitis C without hepatic coma
CPT/HCPCS: 99214

== ENCOUNTER 2024-03-09 07:29 | Outpatient (AMB) | payer BC, SELFPAY ==
--- NOTE | 2024-03-09 07:39 | MHC.PC.OV ---
Vital Signs 03/09/24 07:40 Height 5 ft Weight 180 lb BMI 35.2 BP 126/70 Blood Pressure Location Lt brachial Position Sitting Intake Visit Reasons: Annual Exam Intake Note: Patient here for an annual physical exam Eligibility Supervisor Required: No Accompanied by: Self / Same As Patient Allergies No Known Allergies Allergy (Verified 03/09/24 07:50) Medication List - Last Reconciled 03/09/24 by Sara Orr MD ascorbate calcium (vitamin C) 500 mg PO DAILY 90 days ferrous sulfate 325 mg PO DAILY 90 days glecaprevir-pibrentasvir 100-40 mg 3 tabs PO DAILY 8 weeks hydroxychloroquine 200 mg PO BID omeprazole 20 mg PO DAILY valacyclovir 1,000 mg PO DAILY Tobacco use date assessed: 03/09/24 Dental Screening Dental Screen Date: 03/09/24 Did you have a dental visit in the last 12 months?: Yes Did you have a dental problem in the last 6 months where you did not have access to dental care?: No Was dental information given to patient?: Patient has dentist HPI HPI Comments History of Present Illness Details The patient is a 38-year-old female presenting for a wellness and preventative care visit. She has a history of rheumatoid arthritis, managed with hydroxychloroquine 200 mg twice daily, and follows with rheumatology. The patient also reports anemia, which previously required a transfusion in September of the last year; current management includes blood work scheduled for monitoring. She is on treatment for hepatitis C, with follow-up appointments noted in gastroenterology. Past interventions include ear surgery due to cholesteatoma, and subsequent ENT follow-ups. Preventative care measures discussed include concerns regarding incomplete vaccination with no prior administration of Tdap, alongside its plan for today due to its 10-year administration schedule. The patient also adheres to a regimen of vitamin C with ferrous sulfate on alternate days. Lifestyle management focuses on reducing soda intake for weight management, given recent holiday weight gain. Declines flu vaccine. - Vaccinations: Administration of Tdap vaccine today. - Screening: Upcoming blood work for glucose, renal function, and lipid profile as part of the physical exam. - Lifestyle: Discussed dietary adjustments, specifically reducing soda intake, using smaller dinner plates to manage portion size, and encouraging increased water intake. [facility] Medical History Anemia Hx of rheumatoid arthritis Hearing loss in left ear Surgical History Hx of colonoscopy History of esophagogastroduodenoscopy (EGD) History of ear surgery Family History Father Throat cancer Lung cancer Mother No problems noted. 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 1. Little interest or pleasure in doing things: not at all 2. Feeling down, depressed, or hopeless: not at all 3. Trouble falling or staying asleep, or sleeping too much: several days 4. Feeling tired or having little energy: not at all 5. Poor appetite or overeating: not at all 6. Feeling bad about yourself - or that you are a failure or have let yourself or your family down: not at all 7. Trouble concentrating on things, such as reading the newspaper or watching television: not at all 8. Moving or speaking so slowly that other people could have noticed. Or the opposite - being so fidgety or restless that you have been moving around a lot more than usual: not at all 9. Thoughts that you would be better off or of hurting yourself in some way: not at all Total score: 1 Depression Screening Interpretation: Negative Depression Screening Done: Yes 35464 - PHQ-9 Billing: Yes Source: Developed by Drs. Jack Snowden, Vickie Owens, Ramiro Mccarty and colleagues, with an educational alicia from [employer]. Thrive Questionnaire Date Thrive assessed: 03/09/24 I am a: Patient What is your living situation today?: I have a steady place to live Within the past 12 months, did the food you bought not last and you didn't have the money to get more?: Never true Within the past 12 months, did you worry whether your food would run out before you got money to buy more?: Never true Do you have trouble paying for medicines?: Yes Do you have trouble getting transportation to medical appointments?: No Do you have trouble paying your heating and electricity bill?: No Do you have trouble taking care of your child, family member or friend?: No Do you have trouble with day-to-day activities such as bathing, preparing meals, shopping, managing finances, etc.?: No Are you currently unemployed and looking for a job?: No Are you interested in more education?: No Please select the resources that you would like help with: None Currently or been in a relationship where the following occur: No concerns reported THRIVE Score: 0 AUDIT C Alcohol Use Questionnaire (AUDIT-C) 1. How often do you have a drink containing alcohol?: Never Total Score: 0 Score Reviewed/Action Taken: No POONAM-7 AMB Questionnaire POONAM-7 Date POONAM - 7 assessed: 03/09/24 Feeling nervous, anxious, or on edge: 0 = Not at all Not being able to stop or control worryin = Not at all Worrying too much about different things: 0 = Not at all Trouble relaxin = Not at all Being so restless that it is hard to sit still: 0 = Not at all Becoming easily annoyed or irritable: 0 = Not at all Feeling afraid as if something awful might happen: 0 = Not at all Total POONAM-7 score (0-4 normal; 5-9 mild; 10-14 moderate; 15-21 severe): 0 Source: Developed by Drs. Jack Snowden, Vickie Owens, Ramiro Mccarty and colleagues, with an educational alicia from [employer]. POONAM-7 Assessment Billing POONAM-7 Assessment Tool: POONAM-7 Assessment 76623 Review of Systems Const Details: - General: Denies depression or anxiety. - Cardiovascular: Denies chest pain. - Respiratory: Denies shortness of breath. - Gastrointestinal: Reports normal bowel movements. - Immunologic/Infectious Disease: Denies receiving the flu vaccine last year. Physical exam (Primary Care) Vital Signs: Last Vital Signs BP 126/70 03/09/24 07:40 BMI result Body Mass Index 35.2 BMI Assessment/Plan discussion: High BMI High, discussed plan: lifestyle, weight reduction, dietary and physical activity Tobacco/Smoking Status: Tobacco use Status Tobacco use date assessed 03/09/24 03/09/24 07:44 Patient Tobacco Use Status Never used Tobacco 03/09/24 07:44 e-Cigarette/Vaping Use Never Used 03/09/24 07:44 PHQ-9: PHQ-9 Score PHQ-9: Total score 1 03/09/24 08:10 Depression Screening Interpretation: Negative Thrive Assessment: Date of Thrive Assessment Date Thrive assessed 03/09/24 03/09/24 07:44 Currently or been in a relationship where the following occur: No concerns reported Const Other: General: Cooperative, healthy appearing, comfortable, no acute distress and well developed Orientation: Patient oriented x3 Limitations: No limitations Head: Normal to inspection Ears: Hearing impaired in the right ear due to previous ear surgery for cholesteatoma Nose: Normal external nose present Face and sinus: Normal facial exam Eyes: Appearance normal, both eyes and all related structures Neck: Normal visual inspection and Yes full ROM Respiratory: Normal respiratory effort and able to speak in complete sentences. Clear to auscultation bilaterally Cardiovascular: Regular rate and rhythm. Normal S1 and S2 GI: Normal to inspection. Soft to palpation and nontender Skin: No rashes or lesions noted Neuro: Patient oriented x3 Extremities: Normal to inspection Office Procedures Flu Questionnaire Does the patient have a severe egg allergy?: No Immunizations Fluarix Triv [id number] (PF) 45 mcg (15 mcg x 3)/0.5 mL IM syringe Performing Provider: Sara Orr MD [place] [facility] [place] [facility] Documented (not given) by: GENE Goldman on 03/09/24 07:44 Reason Not Given: Patient Refused Boostrix Tdap 2.5 Lf unit-8 mcg-5 Lf/0.5 mL intramuscular syringe Performing Provider: Sara Orr MD Performing Location: [facility] Administered by: GENE Goldman on 03/09/24 08:11 Dose Route Admin Location Dispensed Lot Number Expiration Date NDC Bean Picker 0.5 mL IM Right Deltoid 0.5 mL [id number] 03/25/26 [id number] [employer] VIS Given Date VIS Provided VIS Publication Date 03/09/24 Single Vaccine 20 Eligibility Eligibility Date Funding Source Not [facility] Eligible 03/09/24 Private Coding Level of Care Code Est Pt Prev Care 18-39y(02926) Diagnoses Physical exam Z00.00 Seropositive rheumatoid arthritis M05.9 Additional Codes POONAM-7 Assessment Billing - POONAM-7 Assessment Tool: POONAM-7 Assessment 92268 ([id number]) PHQ-9 - 43664 - PHQ-9 Billing: Yes ([id number]) Time Spent (min) 30 Assessment & Plan Assessment & Plan (1) Physical exam: Code(s): Z00.00 - Encounter for general adult medical examination without abnormal findings Category: Medical (2) Seropositive rheumatoid arthritis: Code(s): M05.9 - Rheumatoid arthritis with rheumatoid factor, unspecified Category: Medical Plan - Administer Tdap vaccine as the patient has not received it previously. - Schedule and complete blood work to assess glucose, renal function, and cholesterol levels. - Continue management of rheumatoid arthritis with hydroxychloroquine, with ongoing rheumatological follow-ups. - Recommend continuing the current treatment plan for hepatitis C, with follow-up as scheduled in gastroenterology. - Encourage lifestyle changes for weight management, focusing on reducing soda intake and increasing water consumption. - Monitor anemia status through planned blood work. Patient was informed and verbally consented to the use of an ambient scribe for clinic note documentation during this visit. I discussed the plan to administer the Tdap vaccine today since it has not been previously given. We also went over the importance of completing blood work to monitor her anemia, glucose levels, renal function, and lipid profile. I reviewed her current medications and follow-up arrangements with rheumatology and gastroenterology. Additionally, we discussed lifestyle modifications to support weight management, emphasizing the reduction of soda intake. Future appointments were planned to continue monitoring her conditions. Orders: Orders Influenza [id number] Immunization Today Z23 - Encounter for immunization Comprehensive [place]. Panel Fast Today Z00.00 - Encounter for general adult medical examination without abnormal findings TDaP Immunization Today Z23 - Encounter for immunization Lipid Panel Today Z00.00 - Encounter for general adult medical examination without abnormal findings Patient Instructions: - Receive the Tdap vaccination today. - Attend scheduled blood work appointments for glucose, renal function, and cholesterol assessments. - Continue with current medication regimen for rheumatoid arthritis and hepatitis C. - Follow dietary recommendations to reduce soda intake and use smaller portion sizes. - Contact us if there are any changes in health or concerns arise.
[2024-03-09 07:40] VITALS: BP 126/70; BMI 35.2
== END 2024-03-09 08:09 | disposition home or self-care (01) ==
PROVIDERS: PCP Internal Medicine; Visit Provider Internal Medicine
DX: Z00.00 Encounter for general adult medical examination without abnormal findings (principal); M05.9 Rheumatoid arthritis with rheumatoid factor, unspecified; Z23 Encounter for immunization

== ENCOUNTER → 2024-03-09 07:29 | Outpatient (BNVA) | payer BC, SELFPAY | PROVIDERS: PCP Internal Medicine; Visit Provider Internal Medicine | DX: Z00.00 Encounter for general adult medical examination without abnormal findings (principal); Z23 Encounter for immunization; M05.9 Rheumatoid arthritis with rheumatoid factor, unspecified; Z79.899 Other long term (current) drug therapy; Z28.21 Immunization not carried out because of patient refusal | CPT/HCPCS: 90471; 90715; 96127 ==